=== PATIENT | female | born 1975 | race Caucasian/White ===

== ENCOUNTER 2019-11-04 21:46 | Observation (INO) | payer OTHER, SELFPAY ==
--- NOTE | ~2019-11-04 | XR_ITS ---
EXAMINATION: XR chest 2V DATE: 11/04/2019 22:10 INDICATION: Chest tightness TECHNIQUE: AP and lateral views of the chest are obtained. COMPARISON: None available FINDINGS: The lungs are free of acute opacities. There is no pleural effusion or pneumothorax. The ca rdiomediastinal silhouette is normal. There is mild thoracic spondylosis. Calcified pulmonary nodules and calcified left hilar lymph nodes are consistent with old granulomatous disease. Cholecystectomy clips are noted in the right upper quadrant. IMPRESSION: 1. No acute cardiopulmonary abnormality. Reviewed, dictated and finalized at location A. SAW OPERATOR CAKE CUTTING
--- NOTE | ~2019-11-04 | CT_ITS ---
EXAMINATION: CT abdomen pelvis w con INDICATION: Epigastric abdominal pain TECHNIQUE: Computed tomographic images of the abdomen and pelvis were obtained after the administrati on of 100 cc of Omnipaque 350 intravenous contrast. The dose-length product (DLP) was 571.92 mGy-cm. Automated exposure control and iterative reconstruction technique were employed. COMPARISON: None available FINDINGS: Minimal dependent atelectasis is present in the lung bases. The heart size is normal. There are calcified granulomas of the left lower lobe. There is focal fatty infiltration of the liver bjorn cent to the ligamentum teres. The gallbladder is surgically absent. Punctate calcifications in an oth erwise normal spleen likely represent healed granulomatous disease. The pancreas and adrenal glands a re normal. The kidneys are unremarkable. No pathologically enlarged abdominal or pelvic lymph nodes a re identified. There is no free intraperitoneal gas or evidence of bowel obstruction. The appendix is not dilated. There is a 14 mm area of circumscribed fat attenuation adjacent to the appendix. IMPRESSION: 1. Area of circumscribed fat attenuation adjacent to the normal size appendix, possibly an epiploic a ppendage. These findings were discussed with Dr. Heath Benson DO in the Emergency Department at 0022 hours on 11/05/2019 by the [facility] Radiologist. Reviewed, dictated and finalized at location A. A PROMOTER IMPRESSION: 1. Area of circumscribed fat attenuation adjacent to the normal size appendix, possibly an epiploic appendage. These findings were discussed with Dr. Heath Benson DO in the Emergency Department at 0022 hours on 11/05/2019 by the [facility] Radiologist.
--- NOTE | 2019-11-04 21:48 | ECG_ITS ---
Measurements Intervals [place] Rate: 67 P: 51 IN: 160 QRS: 61 QRSD: 99 T: 34 QT: 396 QTc: 418 Interpretive Statements SINUS RHYTHM NORMAL ECG Electronically Signed On 11-05-2019 6:50:41 PLATFORM MAN by Alistair Adamson D.O.
[2019-11-04 21:52] VITALS: BP 161/96; PULSE 78; RESP 20; TEMP 36.9; O2SAT 100; O2SAT 99
--- NOTE | 2019-11-04 21:52 | ED.CHESTPAIN ---
HPI - Chest Pain General Chief Complaint: Chest Pain Stated Complaint: Chest tightness Time Seen by Provider: 11/04/19 21:51 Source: patient and RN notes reviewed Mode of arrival: ambulatory Limitations: no limitations History of Present Illness HPI narrative: Pt is a 44 y/o female who presents to the ED with c/o substernal chest pain starting this evening. She notes that she suddenly developed a squeezing pain in her lower chest roughly 40 minutes ago. Pt states that her pain radiated into her upper back. She reports nausea and SOB accompanying her pain. Pt states that her symptoms soon resolved after several minutes. She also reports intermittent numbness in her lt arm over the past several weeks. Pt states that she has a FHx of [place]. MD complaint: chest pain Onset (ago): minute(s) (40) Timing of current episode: now resolved Pain location: substernal Pain radiation: none Quality: other (squeezing) Associated symptoms: nausea, dyspnea and other (numbness in lt arm) Related Data Home Medications Medication Instructions Recorded Confirmed metformin 1,000 mg PO DAILY 11/04/19 rosuvastatin 40 mg PO 2XW 11/04/19 semaglutide [Ozempic] mg SUBCUT WEEKLY 11/04/19 Allergies Allergy/AdvReac Type Severity Reaction Status Date / Time Penicillins Allergy Severe Anaphylactic Verified 11/04/19 21:59 Shock Review of Systems Review of Systems: All systems reviewed & are unremarkable except as noted in HPI and below Cardiovascular: Cardiovascular: Reports chest pain (substernal) Respiratory: Respiratory: Reports dyspnea Gastrointestinal: Gastrointestinal: Reports nausea Neurologic: Reports numbness (lt arm) [facility] Past Medical History Medical History Foot fracture, right Surgical History Surgical History No significant past surgical history Family History Family History (Updated 11/04/19 @ 22:00 by Jack Villasenor) Father , from [place] in his 30's Acute myocardial infarction Social History Social History Smoking status: Never smoker Exam Narrative: Exam Narrative: APPEARANCE: No acute distress, nontoxic, resting in bed EYES: EOMI HEENT: Normocephalic, atraumatic, OMM RESPIRATORY: No respiratory distress Clear to auscultation bilaterally with no rhonchi wheezing or rales. CARDIOVASCULAR: Regular rate and rhythm without murmurs rubs or gallops. ABDOMINAL: Soft, nontender, nondistended, no rebound or guarding MUSCULOSKELETAl: Moves all extremities. No clubbing, cyanosis or edema. NEURO: Awake and alert. Following commands, speech normal, no focal deficits SKIN:: Warm, dry. No rashes lesions or abrasions PSYCHIATRIC: Normal affect/mood, Course Course Emergency Course: Discussed with Dr. Lemus presentation work-up. Agrees with admission at this time Discussed with patient and family results of workup and diagnosis. Discussed need for admission. Patient and family understand and agree to current treatment plan Consultations Consultation #1: Discussed case with quill winder, Dr. Weiner. He will consult. Admit to the hospitalist. Date: 11/05/19 Time: 00:26 Vital Signs Vital signs: Vital Signs Temperature 98.5 F 11/04/19 21:52 Pulse Rate 78 11/04/19 21:52 Respiratory Rate 20 11/04/19 21:52 Blood Pressure 161/96 H 11/04/19 21:52 Pulse Oximetry 99 11/04/19 21:52 Temperature 98.5 F 11/04/19 21:52 Pulse Rate 61 11/05/19 00:14 Respiratory Rate 18 11/05/19 00:14 Blood Pressure 148/67 H 11/05/19 00:14 Pulse Oximetry 99 11/05/19 00:14 MDM - Chest Pain Lab Data Result diagrams: 11/04/19 22:26 11/04/19 22:26 Labs: Lab Results 11/04/19 11/04/19 11/04/19 Range/Units 22:26 22:26 22:26 WBC 9.0 (4.5-10.0) K/mm3 RBC 4.54 (4.2-5.4) M/mm3 Hgb 12.2 (12.0-15.0) g/dL Hct
[2019-11-04 22:22] VITALS: BP 145/77; PULSE 70; RESP 19; O2SAT 99
[2019-11-04 22:32] LABS: Basophils Absolute Auto 0.1 K/mm3 (0.0-0.1); Basophils Percent Auto 0.9 % (0.2-1.2); Eosinophils Absolute Auto 0.1 K/mm3 (0-0.3); Eosinophils Percent Auto 1.3 % (0-4.4); Hematocrit 38.3 % (37.0-47.0); Hemoglobin 12.2 g/dL (12.0-15.0); Immature Granulocyte Absolute 0.02 K/mm3 (0.00-0.031); Immature Granulocyte Percent A 0.2 % (0-0.5); Lymphocytes Absolute Auto 2.98 K/mm3 (0.9-3.2); Lymphocytes Percent Auto 33.1 % (18.3-44.2); Mean Corpuscular HGB Conc 31.9 g/dl (32-36); Mean Corpuscular Hemoglobin 26.9 pg (26-34); Mean Corpuscular Volume 84.4 fl (80-100); Monocytes Absolute Auto 0.7 K/mm3 (0.1-0.6); Monocytes Percent Auto 7.5 % (2.6-8.5); Neutrophils Absolute Auto 5.1 K/mm3 (1.3-6.7); Platelet Count Result 268 k/mm3 (150-375); Red Blood Count 4.54 M/mm3 (4.2-5.4); Red Cell Distribution Width 12.9 % (11.5-14.5)
[2019-11-04] MEDS: ASPIRIN 81 MG CHEWABLE TABLET 324 MG PO (22:38)
[2019-11-04 22:41] LABS: INR 1.1; Prothrombin Time 13.5 Seconds (11.1-14.7)
[2019-11-04 22:42] LABS: Partial Thromboplastin Time 27.4 SECONDS (22.3-36.8)
[2019-11-04 22:44] LABS: Alanine Aminotransferase 24 U/L (4-35); Albumin Level 3.9 g/dL (3.5-5.1); Alkaline Phosphatase 56 U/L (38-126); Aspartate Amino Transferase 38 U/L (14-36); Bilirubin,Total 0.4 mg/dL (0.2-1.3); Lipase 857 U/L (23-300)
[2019-11-04 22:45] LABS: Blood Urea Nitrogen 17 mg/dL (7-17); Carbon Dioxide 27 mmol/L (22-30); Chloride 100 mmol/L (98-107); Estimated CRCL calculation 107 ml/min; Estimated Glomerular Filt Rate > 60; Glucose 86 mg/dL (65-105); Potassium 3.7 mmol/L (3.4-5.0); Sodium 138 mmol/L (137-145)
[2019-11-04 22:56] LABS: Troponin I < 0.012 ng/mL (0.000-0.034)
[2019-11-04 23:07] VITALS: BP 140/78; PULSE 63; RESP 19; O2SAT 98
[2019-11-05] VITALS (18 sets, daily range): BP systolic 126–148; BP diastolic 65–74; PULSE 59–80; RESP 16–20; TEMP 36.4–36.7; O2SAT 94–99; BMI 28.8
[2019-11-05 01:21] LABS: Troponin I < 0.012 ng/mL (0.000-0.034)
--- NOTE | 2019-11-05 02:05 | ADMGEN ---
This patient, Paty Goldsmith, was admitted to IMU Room 205-01. Patient/family oriented to hospital policies and general routines including ID bracelet, bed and alarms, visiting hours, pain management, procedures, bathroom and other care routines, personal items, smoking policy, room service/diet, and visiting hours. Valuables list has been completed. Information on how to activate the Rapid Response Team has been discussed. Patient/Family are encouraged to report perceived risks to care and to ask questions if they do not understand what they are told or what they should do.
[2019-11-05 05:21] LABS: Troponin I < 0.012 ng/mL (0.000-0.034)
--- NOTE | 2019-11-05 09:38 | PM.CNCAR ---
Assessment and Plan Assessment and plan (1) Chest pain: Code(s): R07.9 - Chest pain, unspecified Status: Acute Assessment and Plan: Her pain is epigastric and radiates to the back which is very typical for her presentation with acute pancreatitis (Lipase 860) Troponin has been negative X 3 with no EKG changes. She would need further work up for acute pancreatitis. Had CT abd that is pending. Further work up per primary team Would hold off any further cardiac work up at this point. BP elevated on admission, better now. Would hold off starting any antihypertensives and follow BP control. May consider outpatient stress testing once pancreatitis resolves for risk stratification given her multiple cardiovascular risk factors (2) Acute pancreatitis: Code(s): K85.90 - Acute pancreatitis without necrosis or infection, unspecified Status: Acute Assessment and Plan: Management per primary team (3) Diabetes 1.5, managed as type 2: Code(s): E13.9 - Other specified diabetes mellitus without complications Status: Acute History of Present Illness History of Present Illness Consult date/time: 11/05/19 09:38 44 y/o female with h/o DM, HLD, s/p cholecystectomy who presented with chest pain. Patient reports episode of severe pain located in the epigastric area that radiated to her back and resolved within 2 minutes, Was associated with bilateral arm numbness. She feels back to normal now. Denies dyspnea, diaphoresis. No nausea or vomiting. In ER, EKG showed sinus rhythm at heart rate 67 with no ischemic changes. Troponin has been negative X3. Lipase is elevated at 860. AST is mildly elevated 38. She denies heavy alcohol abuse, though had glass of wine over the weekend. Her gallblader was removed 10 years ago. BP on admission was 160/95 but better now. No prior history or HTN. No prior known cardiac history. Denies tobacco abuse. Reason For Visit: Chest pain Review of Systems Review of Systems: All systems reviewed & are unremarkable except as noted in HPI and below Constitutional: Constitutional: Denies fatigue and Denies headache(s) Eyes: Eyes: Denies blurry vision ENT: Reports Normal hearing present and Denies headache(s) Cardiovascular: Cardiovascular: Denies chest pain, Denies diaphoresis, Denies pedal edema, Denies leg edema, Denies lightheadedness, Denies palpitations and Denies dyspnea Respiratory: Respiratory: Denies cough and Denies dyspnea Gastrointestinal: Gastrointestinal: Denies abdominal pain Musculoskeletal: Musculoskeletal: Denies back pain Neurologic: Reports Normal hearing present and Denies headache(s) Psychiatric: Psychiatric: Denies anxiety Endocrine: Endocrine: Denies fatigue and Denies palpitations PMF Past Medical History Medical History Foot fracture, right Surgical History Surgical History No significant past surgical history Family History Family History (Updated 11/04/19 @ 22:00 by Jack Villasenor) Father , from [place] in his 30's Acute myocardial infarction Social History Social History Smoking status: Never smoker Alcohol intake: never Substance use: never Gender identity (if verbalized by the patient): Female Spiritual care concerns: No Agree to blood products: Yes Meds Home Medications and Allergies Home Medications Medication Instructions Recorded Confirmed Type metformin 1,000 mg PO DAILY 11/04/19 11/05/19 History rosuvastatin 40 mg PO 2XW 11/04/19 11/05/19 History semaglutide [Ozempic] 1 mg SUBCUT WEEKLY 11/04/19 11/05/19 History Allergies Allergy/AdvReac Type Severity Reaction Status Date / Time Penicillins Allergy Severe Anaphylactic Verified 11/04/19 21:59 Shock Vital Signs Vital Signs - 24 hr 11/04/19 21:52
[2019-11-05] MEDS: SODIUM CHLORIDE 0.9% IV 1,000 ML 100 ML IV CONT (14:20)
--- NOTE | 2019-11-05 16:37 | HP_ITS ---
DATE OF SERVICE: REASON FOR ADMISSION: Patient admitted with chest pain. HISTORY OF PRESENT ILLNESS: This is a 44-year-old female admitted with substernal chest pain at the center of her sternum, radiating to her back. The patient states she was also having shortness of breath and sweat at the time. The patient had a pizza 3 hours before that. The patient states she had a cholecystectomy 7 years ago, and the patient states she is a diabetic. The patient sees Endocrinology in [place] and is on Ozempic, which is a weekly injection for diabetes. Patient is also on metformin. The patient states she started this new injection 6 months ago. The patient is otherwise usually well, does not come to hospital. The patient was seen by Cardiology. Chest pain, cardiac related, was ruled out. Troponins were negative and no EKG changes were seen. The patient was also found to have a lipase of 860. AST was also elevated at 38. The patient had a CT abdomen and pelvis, which showed normal appendix and no other acute changes. REVIEW OF SYSTEMS: Positive for substernal chest pain, severe in nature, radiating to the back. The patient is also positive for shortness of breath and sweats. The patient reports some nausea and some left arm numbness on admission, which is resolved. PAST MEDICAL HISTORY: The patient has a history of diabetes type 2. PAST SURGICAL HISTORY: Patient has history of right foot fracture and cholecystectomy. FAMILY HISTORY: Positive for myocardial infarction. SOCIAL HISTORY: Patient denies smoking. Drinks occasionally. MEDICATIONS ON ADMISSION: The patient is on metformin 1000 mg p.o. daily, Ozempic 1 mg subcutaneously weekly, 40 mg p.o. Tuesday and . PHYSICAL EXAMINATION: VITAL SIGNS: On admission, temperature 36.4, pulse 64, respirations 16, blood pressure 138/72. GENERAL: The patient is a young female, pleasant in nature. Not in any acute distress. EYES: PERRLA. HENT: Normocephalic. RESPIRATIONS: Clear to auscultation. No wheezes heard. CARDIOVASCULAR: Normal rate and rhythm. ABDOMEN: Soft, nontender. MUSCULOSKELETAL: Able to move all 4 limbs. NEURO: Alert and awake, following commands. No focal deficits. SKIN: Warm and dry. PSYCHIATRIC: Good mood and affect. EXTREMITIES: No edema. NECK: No JVD. LABORATORY DATA: Hemoglobin and hematocrit 12.2 and 38.3, white cell 9, platelets 268. INR 1.1. Sodium 138, potassium 3.7, BUN 17, creatinine 0.6, AST 38. Troponins x3 were negative. Lipase was found to be 857. IMAGING: The patient had a chest x-ray, which was normal. The patient had a CT abdomen and pelvis, which showed a normal-sized appendix. No acute findings. The patient had an EKG, which was normal. ASSESSMENT: 1. Pancreatitis, acute. 2. Diabetes type 2. PLAN: Patient admitted to the medical floor. Patient seen by Cardiology. Chest pain cardiac in nature ruled out. Patient does appear to have pancreatitis, possibly related to her diabetic injections. Patient is started on fluids. Patient is started on a clear diet which has been advanced slowly. Patient will have a repeat lipase in the morning. Possible discharge tomorrow. Please note that patient may not be able to continue on her Ozempic on discharge. D I [place]: Jovan
[2019-11-05 16:54] LABS: Glucose Point of Care 86 (65-105)
[2019-11-05 20:51] LABS: Glucose Point of Care 107 (65-105)
[2019-11-06] VITALS (8 sets, daily range): BP systolic 122–133; BP diastolic 63–65; PULSE 59–80; RESP 18–97; TEMP 35.9–36.9; O2SAT 97–100
[2019-11-06] MEDS: SODIUM CHLORIDE 0.9% IV 1,000 ML 100 ML IV CONT (00:34)
[2019-11-06 05:00] LABS: Basophils Absolute Auto 0.1 K/mm3 (0.0-0.1); Basophils Percent Auto 0.8 % (0.2-1.2); Eosinophils Absolute Auto 0.2 K/mm3 (0-0.3); Eosinophils Percent Auto 1.9 % (0-4.4); Hematocrit 37.4 % (37.0-47.0); Hemoglobin 12.1 g/dL (12.0-15.0); Immature Granulocyte Absolute 0.01 K/mm3 (0.00-0.031); Immature Granulocyte Percent A 0.1 % (0-0.5); Lymphocytes Absolute Auto 2.63 K/mm3 (0.9-3.2); Lymphocytes Percent Auto 33.1 % (18.3-44.2); Mean Corpuscular HGB Conc 32.4 g/dl (32-36); Mean Corpuscular Hemoglobin 27.1 pg (26-34); Mean Corpuscular Volume 83.9 fl (80-100); Mean Platelet Volume 9.7 fl (7.4-10.4); Monocytes Absolute Auto 0.6 K/mm3 (0.1-0.6); Monocytes Percent Auto 7.3 % (2.6-8.5); Neutrophils Absolute Auto 4.5 K/mm3 (1.3-6.7); Neutrophils Percent Auto 56.8 % (45.5-73.1); Platelet Count Result 244 k/mm3 (150-375); Red Blood Count 4.46 M/mm3 (4.2-5.4); Red Cell Distribution Width 12.7 % (11.5-14.5)
[2019-11-06 05:19] LABS: Cholesterol 106 mg/dL (0-200); HDL Direct 36 mg/dL; Triglycerides 78 mg/dL (<150)
[2019-11-06 05:21] LABS: Lipase 110 U/L (23-300)
[2019-11-06 05:23] LABS: Blood Urea Nitrogen 11 mg/dL (7-17); Calcium 8.8 mg/dL (8.4-10.2); Carbon Dioxide 26 mmol/L (22-30); Chloride 106 mmol/L (98-107); Estimated CRCL calculation 106 ml/min; Estimated Glomerular Filt Rate > 60; Glucose 79 mg/dL (65-105); Potassium 4.1 mmol/L (3.4-5.0); Sodium 138 mmol/L (137-145)
[2019-11-06 05:30] LABS: LDL Cholesterol Direct 56 mg/dL
[2019-11-06 07:42] LABS: Glucose Point of Care 83 (65-105)
--- NOTE | 2019-11-06 09:39 | PM.DS ---
DS: Diagnosis Admitting Diagnosis Admitting Diagnosis: Chest pain, unspecified Discharge Diagnosis (1) Acute pancreatitis: Code(s): K85.90 - Acute pancreatitis without necrosis or infection, unspecified Status: Acute Assessment and Plan: Possible mild case of pancreatitis given lipase 800s yesterday; WNL today. No evidence on CT abdomen. Patient tolerating PO well today; no associated abdominal pain/n/v. Pain has subsided. Will have patient hold Ozempic until further recommendations from her Electrical Machinist Follow up with PCP as needed (2) Diabetes 1.5, managed as type 2: Code(s): E13.9 - Other specified diabetes mellitus without complications Status: Acute Assessment and Plan: BGL ranged from 70s-low 100s; well managed. Will have patient follow up with Electrical Machinist Hold Ozempic Continue home Metformin (3) Chest pain: Code(s): R07.9 - Chest pain, unspecified Status: Acute Assessment and Plan: Substernal CP vs epigastric pain from possible pancreatitis; pain radiating to back. Patient tells me this only lasted 2-3 minutes. Cardiology consulted and appreciate recommendations; okay for discharge from their standpoint. ACS ruled out with negative tropsx3 and normal ECG Follow up with Cardiology as needed DS: Summary Hospital Course Reason for hospitalization: CP/rule out ACS. Pancreatitis suggested by elevated lipase; possible medication induced Hospital Course: Patient is a 44 yo F with history of DM1.5 (treated as DMII) who presented to the ER on evening of 11/04 with complaints of substernal chest pain that radiated to upper back. She had associated SOB and sweats at that time as well. She had eaten pizza 3 hours prior to pain. She also reported recently starting Ozempic injections roughly 6 months ago for her DM. While in the ER, troponins were negative and ECG was grossly normal. CT of abd/pelvis noted area of circumscribed fat attenuation adjacent to the normal size appendix, possibly an epiploic appendage. Please see H&P for further details Presenting VS: BP 161/96, HR 78, RR 20, temp 98.5, sat 99% RA Presenting Pertinent labs: Troponins negative x 3, Lipase 857 (11/06 110), triglycerides 78, cholesterol 106, LDL 56, HDL 36. CBC, coags, CMP otherwise unremarkable Micro: none Imagin/24 CXR IMPRESSION: 1. No acute cardiopulmonary abnormality. 11/05 Abdomen/pelvis Ct IMPRESSION: 1. Area of circumscribed fat attenuation adjacent to the normal size appendix, possibly an epiploic appendage. These findings were discussed with Dr. Heath Benson DO in the Emergency Department at 0022 hours on 11/05/2019 by the [facility] Radiologist. ECG: Interpretive Statements SINUS RHYTHM NORMAL ECG Patient was admitted to the hospitalist service for further evaluation to rule out ACS and to treat possible case of pancreatitis as lipase into 800s; Cardiology was consulted for further input on symptoms, which recommended no further cardiac work up at this time as trops negative x 3, no ekg changes and symptoms had resolved. On day of admission, patient's Ozempic was held as this could be possible etiology for pancreatitis, thus, likely etiology of symptoms. Her diet was advanced slowly over the course of her stay. By day of discharge she did not complain of any pain; she noted that her substernal chest pain only had last 2-3 minutes on day of presentation. She was tolerating her diet okay. She was instructed to hold Ozempic until she discussed with her Electrical Machinist. Her lipase had normalized. Her BP had improved as well. Patient was hemodynamically stable and in improved condition for discharge on 11/06. Patient instructed to call her PCP's office to see if they would like to see her in for a follow up. Patient agreeable and comfortable with plan for discharge. Status at
== END 2019-11-06 12:24 | disposition home or self-care (01) ==
LOC: ANHED 22:09 → ANHIMU 11-05 01:21
PROVIDERS: Family Medicine; Physician Assistant; Admitting Provider Internal Medicine; Emergency Provider Emergency Medicine; PCP Nurse Practitioner Adult Health; Visit Provider Hospitalist
DX: K85.90 Acute pancreatitis without necrosis or infection, unspecified (principal); E13.9 Other specified diabetes mellitus without complications; R07.2 Precordial pain; Z79.84 Long term (current) use of oral hypoglycemic drugs; Z82.49 Family history of ischemic heart disease and other diseases of the circulatory system; Z90.49 Acquired absence of other specified parts of digestive tract
CPT/HCPCS: 36415; 71046; 74177; 80048; 80061; 80076; 81025; 83690; 84484; 85025; 85610; 85730; 93005; 96360; 96361; 99285; A9270; G0378; J7030; Q9967

== ENCOUNTER 2022-03-04 17:09 | Emergency (ER) | payer OTHER, SELFPAY ==
[2022-03-04 17:17] VITALS: BP 145/68; PULSE 78; RESP 16; TEMP 37.2; O2SAT 99
--- NOTE | 2022-03-04 17:17 | ED.URI ---
HPI - URI/Sore Throat General Chief Complaint: Upper Respiratory Infection Stated Complaint: uri Time Seen by Provider: 03/04/22 17:25 Source: patient and RN notes reviewed Mode of arrival: ambulatory Limitations: no limitations History of Present Illness HPI Narrative: 46-year-old female presented for complaint of sinus pressure and congestion, sore throat, cough occasionally productive of green sputum. Endorses fatigue. Symptoms started 4 days ago. Taking Aleve sinus for symptoms. Denies associated headache, body aches, shortness of breath, nausea vomiting, fevers or chills. Endorses sick contacts 4 days ago. She is not vaccinated for COVID or flu. Endorses COVID 2 to 3 months ago. MD elicited complaint: cough Related Data Home Medications Medication Instructions Recorded Confirmed metformin 500 mg tablet,extended 1,000 mg PO DAILY 11/04/19 11/05/19 release 24 hr rosuvastatin 40 mg tablet 40 mg PO 2XW 11/04/19 11/05/19 semaglutide 1 mg/dose (2 mg/1.5 1 mg subcut WEEKLY 11/04/19 11/05/19 mL) subcutaneous pen injector (Ozempic) escitalopram oxalate 20 mg tablet tablet 03/04/22 ubrogepant 100 mg tablet (Ubrelvy) tablet 03/04/22 Allergies Allergy/AdvReac Type Severity Reaction Status Date / Time Penicillins Allergy Severe Anaphylactic Verified 11/04/19 21:59 Shock Review of Systems Review of Systems: CONSTITUTIONAL: Denies chills, sweats, fever EYES: Denies visual changes, redness, or discharge ENT: Reports rhinorrhea, congestion, sinus pain, otalgia, sore throat CARDIOVASCULAR: Denies chest pain, palpitations, edema RESPIRATORY: Reports cough, post nasal drainage. Denies dyspnea GASTROINTESTINAL: Denies abdominal pain, nausea, vomiting, diarrhea SKIN: Denies rash or itching MUSCULOSKELETAL:denies myalgia PMFSH Past Medical History Medical History Acute pancreatitis Diabetes 1.5, managed as type 2 Foot fracture, right Surgical History Surgical History No significant past surgical history Family History Family History Father , from [place] in his 30's Acute myocardial infarction Social History Social History Smoking status: Never smoker Alcohol intake: never Substance use: never Gender identity (if verbalized by the patient): Female Spiritual care concerns: No Agree to blood products: Yes Exam Narrative: GENERAL: Ill-appearing, nontoxic EYES: PERRLA, conjunctivae clear ENT: Mucous membranes moist. TM pearly dhillon with normal light reflex bilaterally; no tragal tenderness. Oropharynx erythematous without lesions or exudate NECK: Supple. No lymphadenopathy CHEST: Clear to auscultation, breath sounds equal. HEART: Regular rate and rhythm. No murmur heard. SKIN: Warm, dry, no rash. NEURO: Alert and oriented x3. PSYCH: Normal mood and affect Course Course Emergency Course: Patient is aware of diagnosis, understands and agrees to treatment plan. Anticipatory guidance given. Patient agrees to follow-up as directed and is aware of reasons to seek care at the emergency department. Portions of this record may have been created with voice recognition software Level of Care: Express Care Visit Vital Signs Vital signs: Vital Signs Temperature 98.9 F 03/04/22 17:17 Pulse Rate 78 03/04/22 17:17 Respiratory Rate 16 03/04/22 17:17 Blood Pressure 145/68 H 03/04/22 17:17 Pulse Oximetry 99 03/04/22 17:17 Oxygen Delivery Room Air 03/04/22 17:17 Temperature 98.9 F 03/04/22 17:17 Pulse Rate 78 03/04/22 17:17 Respiratory Rate 16 03/04/22 17:17 Blood Pressure 145/68 H 03/04/22 17:17 Pulse Oximetry 99 03/04/22 17:17 Oxygen Delivery Room Air 03/04/22 17:17 reviewed MDM - URI/Sore Throat MDM [place]
[2022-03-04 17:55] VITALS: BP 145/68; PULSE 78; RESP 16; TEMP 37.2; O2SAT 99
== END 2022-03-04 17:50 | disposition home or self-care (01) ==
PROVIDERS: Emergency Provider Nurse Practitioner Family; PCP Nurse Practitioner Adult Health
DX: J06.9 Acute upper respiratory infection, unspecified (principal); E13.8 Other specified diabetes mellitus with unspecified complications; Z79.84 Long term (current) use of oral hypoglycemic drugs; Z28.310 Unvaccinated for COVID-19; Z86.16 Personal history of COVID-19
CPT/HCPCS: 87081; 87880; 99213; G0463

== ENCOUNTER → 2022-03-26 16:41 | Outpatient (CLI) | payer OTHER, SELFPAY ==
--- NOTE | ~2022-03-26 | XR_ITS ---
XR chest 2V 03/26/2022 17:03 Indication: Cough Procedure: 2 view chest Comparison: 11/04/2019 Findings: Heart size normal. No focal air space disease, pulmonary edema, pleural effusion or suspect ed pneumothorax. There are calcified granulomas bilaterally. No acute osseous abnormality. Impression: 1: No acute cardiopulmonary disease. Reviewed, dictated and finalized at location A. Impression: 1: No acute cardiopulmonary disease.
== END ==
PROVIDERS: PCP Nurse Practitioner Adult Health; Visit Provider Nurse Practitioner Adult Health
DX: R05.9 Cough, unspecified (principal)
CPT/HCPCS: 71046

== ENCOUNTER → 2023-08-29 09:41 | Outpatient (CLI) | payer OTHER, SELFPAY ==
--- NOTE | ~2023-08-29 | MR_ITS ---
MRI of the brain Clinical History: Tremor Technique: Axial and sagittal T1-weighted images were acquired. These were followed by axial T2-weigh trixie, diffusion weighted, gradient, and FLAIR images. Following intravenous administration of 70 cc Mu ltiHance gadolinium, T1-weighted fat-sat imaging was performed in the axial and coronal planes. Findings: There is no acute infarct, intracranial hemorrhage or mass lesion. There are moderate chron ic white matter changes in the periventricular white matter bilaterally. Ventricles and subarachnoid spaces are unremarkable. Orbits are unremarkable. Paranasal sinuses and m astoid air cells are clear. Major intracranial flow voids appear intact. Sagittal midline structures are intact. No abnormal postcontrast enhancement identified. IMPRESSION: Moderate chronic white matter disease. Correlate for chronic microvascular ischemic change versus any possibility of demyelinating disease. Reviewed, dictated and finalized at location M. IFIED LACTATION EDUCATOR IMPRESSION: Moderate chronic white matter disease. Correlate for chronic microvascular isch emic change versus any possibility of demyelinating disease.
== END ==
PROVIDERS: PCP Physician Assistant Medical; Visit Provider Physician Assistant Medical
DX: R25.1 Tremor, unspecified (principal); R90.82 White matter disease, unspecified
CPT/HCPCS: 70553; A9577

== ENCOUNTER 2023-10-21 16:59 | Observation (INO) | payer OTHER, SELFPAY ==
[2023-10-21 17:04] VITALS: BP 155/82; PULSE 129; RESP 20; TEMP 36.8; O2SAT 100
--- NOTE | 2023-10-21 17:10 | ECG_ITS ---
Measurements Intervals [place] Rate: 106 P: 42 AR: 128 QRS: 83 QRSD: 109 T: -3 QT: 351 QTc: 468 Interpretive Statements SINUS TACHYCARDIA NONSPECIFIC T-WAVE ABNORMALITY ABNORMAL ECG COMPARED TO ECG 11/04/2019 21:58:04 SINUS TACHYCARDIA NOW PRESENT T-WAVE ABNORMALITY NOW PRESENT Electronically Signed On 10-22-2023 8:03:15 JOURNEYMAN ELECTRICIAN PV INSTALLER by Vickey Fletcher M.D.
--- NOTE | 2023-10-21 17:12 | PC.NURSE ---
Received a call from [facility], stated that a pt was coming after ingesting a handful; of Wellbutrin 150MG pills. unsure of the amount. the ingestion was 2 hrs barge captain to ED. pt has cardiovascular changes and activation of seizures. they did request tox labs, ekg, if needed Activated Charcoal 50 mg without Sorbital
--- NOTE | 2023-10-21 17:16 | ECG_ITS ---
Measurements Intervals [place] Rate: 122 P: 55 HI: 143 QRS: 86 QRSD: 105 T: -2 QT: 352 QTc: 502 Interpretive Statements SINUS TACHYCARDIA NONSPECIFIC ST & T-WAVE ABNORMALITY ABNORMAL ECG COMPARED TO ECG 11/04/2019 21:58:04 SINUS TACHYCARDIA NOW PRESENT T-WAVE ABNORMALITY NOW PRESENT Electronically Signed On 10-22-2023 13:21:29 GARBAGE TRUCK DRIVER by Vickey Fletcher M.D.
[2023-10-21 17:24] LABS: Basophils Absolute Auto 0.1 K/mm3 (0.0-0.1); Basophils Percent Auto 0.9 % (0.2-1.2); Eosinophils Absolute Auto 0.1 K/mm3 (0-0.3); Eosinophils Percent Auto 0.9 % (0-4.4); Hemoglobin 14.5 g/dL (12.0-15.0); Immature Granulocyte Absolute 0.04 K/mm3 (0.00-0.031); Immature Granulocyte Percent A 0.3 % (0-0.5); Lymphocytes Percent Auto 24.7 % (18.3-44.2); Mean Corpuscular HGB Conc 32.2 g/dl (32-36); Mean Corpuscular Hemoglobin 27.5 pg (26-34); Mean Corpuscular Volume 85.4 fl (80-100); Mean Platelet Volume 9.7 fl (7.4-10.4); Monocytes Absolute Auto 0.8 K/mm3 (0.1-0.6); Monocytes Percent Auto 6.6 % (2.6-8.5); Neutrophils Absolute Auto 7.8 K/mm3 (1.3-6.7); Neutrophils Percent Auto 66.6 % (45.5-73.1); Platelet Count Result 310 k/mm3 (150-375); Red Blood Count 5.27 M/mm3 (4.2-5.4); Red Cell Distribution Width 12.7 % (11.5-14.5); White Blood Count 11.8 K/mm3 (4.5-10.0)
[2023-10-21 17:35] LABS: Acetaminophen < 10 ug/mL (10-30); Alanine Aminotransferase 23 U/L (6-35); Albumin Level 4.6 g/dL (3.5-5.1); Alkaline Phosphatase 71 U/L (38-126); Anion Gap 9 mmol/L (8-16); Aspartate Amino Transferase 30 U/L (14-36); Bilirubin,Total 0.7 mg/dL (0.2-1.3); Blood Urea Nitrogen 17 mg/dL (7-17); Calcium 9.4 mg/dL (8.4-10.2); Carbon Dioxide 22 mmol/L (22-30); Chloride 105 mmol/L (98-107); Estimated CRCL calculation 93 ml/min; Estimated Glomerular Filt Rate > 60; Ethanol < 10 mg/dL (<10); Glucose 132 mg/dL (65-110); Potassium 3.8 mmol/L (3.4-5.0); Salicylate < 1.0 mg/dL (2-20); Sodium 136 mmol/L (137-145)
[2023-10-21 18:00] LABS: SARS-CoV-2 RNA PCR Negative (Negative)
[2023-10-21 18:01] LABS: Appearance Urine Clear (Clear); Bilirubin Urine Negative (Negative); Blood Urine Negative (Negative); Color Urine Yellow (Yellow); Glucose Urine UA 3+ mg/dL (Negative); Ketones Urine Trace mg/dL (Negative); Leukocyte Esterase Ur Negative LEU/UL (Negative); Nitrate Urine Negative (Negative); Protein Urine Negative (Negative); Specific Grav Ur 1.024 (1.001-1.035); Urobilinogen Urine 0.2 mg/dL (<2.0)
[2023-10-21 18:12] LABS: Add Urine Microscopic? NO
[2023-10-21 18:15] LABS: Amphetamine Screen Urine Negative (Negative); Barbiturate Screen Urine Negative (Negative); Benzodiazepines Screen Urine Negative (Negative); Cannabinoid Screen Urine Negative (Negative); Cocaine Screen Urine Negative (Negative); Methadone Screen Urine Negative (Negative); Opiate Screen Urine Negative (Negative); Phencyclidine Screen Urine Negative (Negative)
--- NOTE | 2023-10-21 18:27 | ED.OVERDOSE ---
HPI - Overdose General Chief Complaint: Overdose Stated Complaint: took welbutrin Time Seen by Provider: 10/21/23 18:06 Source: patient and family Limitations: no limitations History of Present Illness HPI Narrative: patient is a 48-year-old female presents to the emergency department for an overdose. Patient states today at approximately 3:00 p.m. she took a handful of Wellbutrin that she had from the past. Patient states the past she was on Wellbutrin XL 150 mg and stop taking this because it was giving her tremors and she was switched to Abilify 150 mg and she stop taking that due to side effects and has not been on any medications recently. Patient states she had a bad day at work was feeling depressed and was hoping that by taking a handful of the Wellbutrin she had at this would increase the levels in her system rapidly and make her feel better. Patient states she took approximately 20 total pills. Patient denies doing this to try to harm herself. Patient admits to feeling depressed. Patient denies alcohol or illicit drug use. Patient denies chest pain, difficulty breathing, abdominal pain, nausea, vomiting, diarrhea, numbness, weakness, confusion, it is vision changes, rash, headache, recent injuries, recent illness, Palpitations, fever. Related Data Home Medications Medication Instructions Recorded Confirmed escitalopram oxalate 20 mg tablet tablet 03/04/22 08/17/23 ubrogepant 100 mg tablet (Ubrelvy) tablet 03/04/22 08/17/23 Allergies Allergy/AdvReac Type Severity Reaction Status Date / Time Penicillins Allergy Severe Anaphylactic Verified 08/19/23 10:32 Shock Review of Systems Review of Systems: A 10 system review of systems was completed on the patient and is negative except for what is stated in the HPI. Nursing and ancillary documentation was reviewed. [facility] Past Medical History Medical History Acute pancreatitis Anxiety Diabetes 1.5, managed as type 2 Foot fracture, right Surgical History Surgical History Hx of cholecystectomy No significant past surgical history Family History Family History Father , from [place] in his 30's Acute myocardial infarction Mother Thyroid disorder Grandparent Cerebrovascular accident Alcoholism Social History Social History Smoking status: Never smoker Alcohol intake: never Substance use: never Substance use type: does not use Gender identity (if verbalized by the patient): Female Spiritual care concerns: No Agree to blood products: Yes Comments At time of signature, I have reviewed and agree with nursing past medical, surgical, social and family history unless otherwise noted. Please see the nursing chart for further information. There is no relevant family history pertinent to the presenting complaint. Exam Narrative: CONST: No acute distress. Well nourished. HENMT: Head is normocephalic and atraumatic. Moist mucous membranes. No posterior oropharynx erythema. EYES: No conjunctival icterus, injection, or pallor. PERRL. pupils are approximately 2 mm bilaterally. NECK: No meningeal signs. RESP: Able to speak in full sentences. Normal respiratory effort. CTAB. CARDIO: Tachycardic rate. Regular rhythm. 2+ DP and radial pulses bilaterally. GI: Nondistended. No tenderness to palpation. Soft. : No CVA tenderness to palpation. SKIN: No rashes or lesions noted on exposed skin. Skin is warm and dry. NEURO: Oriented x3. Moves all extremities. No focal neurological deficits. No tremors. No clonus. EXTREM/MSK/BACK: No pedal edema. Course Vital Signs Vital signs: Vital Signs Temperature 98.2 F 10/21/23 17:04 Pulse Rate 129 H 10/21/23 17:04 Respiratory Rate 20 10/21/23 17:04
[2023-10-21 18:28] LABS: Beta HCG Quantitative < 2.39 mIU/ML
[2023-10-21] MEDS: POTASSIUM CHLORIDE 20 MEQ PACKET (FOR LIQUID) PO (19:16)
--- NOTE | 2023-10-21 19:47 | PM.IMHP ---
H&P: HPI History of Present Illness Date/Time: 10/21/23 19:47 Chief Complaint: OD Narrative: This is a 48-year-old female with past medical history significant for type diabetes mellitus, generalized anxiety disorder, depression . Patient presents to the emergency room after ingesting 15 tabs of Wellbutrin accidentally, patient denies any suicidal ideation any intent of harming herself or hurting herself I have had lengthy discussion and conversation with patient and who is at bedside patient being mentally denies having any thoughts of hurting herself supports her who is at bedside. Poison Control was called and patient has been placed in observation for possible seizure Review of Systems Review of Systems: ingested 15 tabs of Wellbutrin Constitutional: Constitutional: Denies chills, Denies fatigue, Denies fever(s), Denies malaise and Denies night sweats Eyes: Eyes: Denies change in vision ENT: Denies dysphagia and Denies odynophagia Cardiovascular: Cardiovascular: Denies chest pain, Denies radiating jaw, neck or arm pain and Denies palpitations Respiratory: Respiratory: Denies cough, Denies excessive phlegm production and Denies dyspnea Gastrointestinal: Gastrointestinal: Denies abdominal pain, Denies dyspepsia, Denies heartburn, Denies diarrhea, Denies nausea and Denies vomiting Genitourinary: Genitourinary: Denies dysuria Musculoskeletal: Musculoskeletal: Denies back pain and Denies arthralgias Integumentary/Breasts: Skin/Breast: Denies rash Neurologic: Denies focal weakness and Denies Sensory deficit (Neuro) Psychiatric: Psychiatric: Reports no additional psychiatric complaints and Reports as per HPI Endocrine: Endocrine: Denies cold intolerance, Denies flushing, Denies heat intolerance, Denies polyphagia, Denies polydipsia and Denies palpitations Hematologic/Lymphatic: Hematologic/Lymphatic: Reports no additional hematologic/lymphatic complaints and Reports as per HPI Allergic/Immunologic: Allergic/Immunologic: Reports no additional allergic/immunologic complaints and Reports as per HPI PMFSH Past Medical History Medical History (Updated 10/22/23 @ 02:55 by Marvin Jameson MD) Acute pancreatitis Anxiety Diabetes 1.5, managed as type 2 Foot fracture, right Surgical History Surgical History Hx of cholecystectomy No significant past surgical history Family History Family History Father , from [place] in his 30's Acute myocardial infarction Mother Thyroid disorder Grandparent Cerebrovascular accident Alcoholism Social History Social History Smoking status: Never smoker Alcohol intake: never Substance use: never Substance use type: does not use Do You Feel Safe in your Home?: Yes Lack of Transportation: No Lack of Food: Never True Current Housing: I Have Housing Concerned About Future Housing: No Difficulty Paying Gas/Electric Bills: No Difficulty Paying for Meds: No Currently Unemployed: No Education: Associate Degree Difficulty w/ Childcare or Family Care: No Gender identity (if verbalized by the patient): Female Spiritual care concerns: No Agree to blood products: Yes Meds Home Medications and Allergies Home Medications Medication Instructions Recorded Confirmed Type escitalopram oxalate 20 mg tablet 20 mg PO DAILY 03/04/22 10/21/23 History ubrogepant 100 mg tablet (Ubrelvy) 100 mg PO DAILY 03/04/22 10/21/23 History rosuvastatin 40 mg tablet 40 mg PO 2XW #30 tabs 08/18/23 10/21/23 Rx dapagliflozin propanediol 5 mg 5 mg PO DAILY #30 tabs 09/30/23 10/21/23 Rx tablet (Farxiga) bupropion HCl 150 mg 24 hr tablet, 150 mg PO DAILY 10/21/23 10/21/23 History extended release (Wellbutrin XL) Allergies Allergy/AdvReac Type Severity Reaction Sta
[2023-10-21 19:57] VITALS: BP 154/74; PULSE 110; RESP 15; O2SAT 100
[2023-10-21] MEDS: SODIUM CHLORIDE 0.9% IV 1,000 ML 999 ML IV CONT (20:13)
[2023-10-21 21:25] VITALS: BP 158/102; PULSE 124; RESP 15; O2SAT 100
[2023-10-21 23:16] VITALS: BMI 31.1
[2023-10-21 23:18] VITALS: BP 162/65; PULSE 113; RESP 18; TEMP 36.5; O2SAT 99
[2023-10-21 23:22] VITALS: PULSE 109
[2023-10-22] VITALS: PULSE 109
--- NOTE | 2023-10-22 00:05 | PC.NURSE ---
Pt is A&O x4, able to make needs known, answers all questions appropriately. Pt denies pain at this time. Pt was instructed to call RN if the pain reaches 5. Pt was educated on pain management, medications, hospital environment, use of call light, admission packet reviewed and all questions answered. Medication reconciliation completed bedside with the pt. Pt's present and bedside. All questions answered, will continue to monitor.
[2023-10-22 00:16] VITALS: PULSE 102; RESP 20; O2SAT 98
[2023-10-22 04:00] VITALS: PULSE 100
[2023-10-22 04:24] VITALS: BP 148/69; PULSE 104; RESP 20; TEMP 37.1; O2SAT 100
[2023-10-22] MEDS: SODIUM CHLORIDE 0.9% IV 1,000 ML 125 ML IV CONT (05:23)
--- NOTE | 2023-10-22 06:38 | ECG_ITS ---
Measurements Intervals [place] Rate: 107 P: ME: 0 QRS: 79 QRSD: 101 T: 8 QT: 360 QTc: 481 Interpretive Statements SINUS TACHYCARDIA NONSPECIFIC T-WAVE ABNORMALITY ABNORMAL ECG COMPARED TO ECG 10/21/2023 19:12:11 ATRIAL FLUTTER NOW PRESENT Electronically Signed On 10-22-2023 8:04:39 PIERCING ARTIST by Vickey Fletcher M.D.
[2023-10-22 08:32] VITALS: PULSE 89
[2023-10-22] MEDS: ACETAMINOPHEN 325 MG TABLET 650 MG PO (08:32)
[2023-10-22 09:25] LABS: Hemoglobin 12.6 g/dL (12.0-15.0); Mean Corpuscular HGB Conc 32.3 g/dl (32-36); Mean Corpuscular Hemoglobin 27.7 pg (26-34); Mean Corpuscular Volume 85.7 fl (80-100); Mean Platelet Volume 9.7 fl (7.4-10.4); Platelet Count Result 262 k/mm3 (150-375); Red Blood Count 4.55 M/mm3 (4.2-5.4); Red Cell Distribution Width 12.9 % (11.5-14.5); White Blood Count 8.2 K/mm3 (4.5-10.0)
[2023-10-22 09:35] LABS: Alanine Aminotransferase 19 U/L (6-35); Albumin Level 3.7 g/dL (3.5-5.1); Alkaline Phosphatase 58 U/L (38-126); Anion Gap 7 mmol/L (8-16); Aspartate Amino Transferase 25 U/L (14-36); Bilirubin,Total 0.9 mg/dL (0.2-1.3); Blood Urea Nitrogen 13 mg/dL (7-17); Calcium 8.8 mg/dL (8.4-10.2); Carbon Dioxide 22 mmol/L (22-30); Chloride 107 mmol/L (98-107); Estimated CRCL calculation 92 ml/min; Estimated Glomerular Filt Rate > 60; Glucose 172 mg/dL (65-110); Magnesium 2.1 mg/dL (1.6-2.3); Potassium 4.1 mmol/L (3.4-5.0); Sodium 136 mmol/L (137-145)
[2023-10-22 12:00] VITALS: PULSE 98
--- NOTE | 2023-10-22 12:38 | ECG_ITS ---
Measurements Intervals [place] Rate: 90 P: 58 CT: 145 QRS: 72 QRSD: 106 T: 18 QT: 367 QTc: 449 Interpretive Statements SINUS RHYTHM NONSPECIFIC T-WAVE ABNORMALITY ABNORMAL ECG COMPARED TO ECG 10/22/2023 06:52:09 NO SIGNIFICANT CHANGES Electronically Signed On 10-22-2023 13:23:14 AUDIO/VISUAL OPERATOR by Vickey Fletcher M.D.
--- NOTE | 2023-10-22 14:04 | PM.DS ---
DS: Admitting Diagnosis Discharge Date 10/22/2023 Admitting Diagnosis Accidental Overdose DS: Discharge Diagnosis Discharge Diagnosis Plan Accidental OVerdose -hold Wellbutrin and Abilify x2 days -F/U with PCP with in 1 week -Schedule O/P psychiatric therapy for anxiety and depression -Encourage oral hydration DS: Summary Hospital Course Reason for hospitalization: accidental overdose Hospital Course: Chief Complaint: OD Narrative: ?This is a 48-year-old female with past medical history significant for type diabetes mellitus, generalized anxiety disorder, depression .? Patient presents to the emergency room after ingesting 15 tabs of Wellbutrin accidentally, patient denies any suicidal ideation any intent of harming herself or hurting herself I have had lengthy discussion and conversation with patient and who is at bedside patient being mentally denies having any thoughts of hurting herself supports her who is at bedside.? Poison Control was called and patient has been placed in observation for possible seizure Patient labs WNL and vitals stable mild tachycardia. Patient alert and oriented eating and drinking well. F/U EKG SR QTC QRS 76 Information called to poison control who closed case. Patient was then seen by crisis who agreed patient was not suicidal or needed inpatient psychiatric. patient was discharged home with plan is to follow-up with primary care physician as well as schedule outpatient psychiatric therapy. Status at Discharge Functional status at discharge: independent ambulation Overall status at discharge: patient is back to baseline Time Spent with Patient Time attestation: Total time spent providing and/or coordinating discharge services: Exam Narrative: Physical Exam: -GENERAL: Alert and oriented x 3. No acute distress. Well-nourished. -EYES: EOMI. No scleral icterus. PERRLA. -HEENT: Moist mucous membranes. No cervical lymphadenopathy. -LUNGS: Clear to auscultation bilaterally. No accessory muscle use. -CARDIOVASCULAR: Regular rate and rhythm. No murmur. No JVD. S1-S2 -ABDOMEN: Soft, non-tender and non-distended. No palpable masses. -EXTREMITIES: No edema. Non-tender -SKIN: No rashes or lesions. Skin warm, dry. -NEUROLOGIC: No focal neurological deficits. CN II-XII grossly intact -PSYCHIATRIC: Appropriate mood and affect. Good judgement and insight. No visual or auditory hallucinations. No suicidal or homicidal ideation. DS: Data Data Completed and Pending Labs on day of discharge: Labs from last 24 hours 10/22/23 10/21/23 10/21/23 09:07 17:50 17:18 WBC 8.2 11.8 H RBC 4.55 5.27 Hgb 12.6 14.5 Hct 39.0 45.0 MCV 85.7 85.4 MCH 27.7 27.5 MCHC 32.3 32.2 RDW 12.9 12.7 Plt Count 262 310 MPV 9.7 9.7 Immature Gran % (Auto) 0.3 Neut % (Auto) 66.6 Lymph % (Auto) 24.7 [place] % (Auto) 6.6 Eos % (Auto) 0.9 Baso % (Auto) 0.9 Lymph # (Auto) 2.90 [place] # (Auto) 0.8 H Eos # (Auto) 0.1 Baso # (Auto) 0.1 Abs Immat Gran (auto) 0.04 H Absolute Neuts (auto) 7.8 H Absolute Nucleated RBC 0.0 Nucleated RBC % 0.0 Sodium 136 L 136 L Potassium 4.1 3.8 Chloride 107 105 Carbon Dioxide 22 22 Anion Gap 7 L 9 BUN 13 17 Creatinine 0.70 0.70 Estim Creat Clear Calc 92 93 Estimated GFR > 60 > 60 Glucose 172 H 132 H Calcium 8.8 9.4 Magnesium 2.1 Total Bilirubin 0.9 0.7 AST 25 30 ALT 19 23 Alkaline Phosphatase 58 71 Total Protein 7.0 8.0 Albumin 3.7 4.6 TSH 3.430 Beta HCG, Quant Urine Color Yellow Urine Appearance Clear Urine pH 6.0 Ur Specific [place] 1.024 Urine Protein Negative Urine Glucose (UA) 3+ H Urine Ketones Trace H Ur Blood (Man) Negative Urine Nitrate Negative Urine Bilirubin Negative Urine Urobilinogen 0.2 Leukocyte Esterase Rfl Negative Salicylates < 1.0 L Urine Opiates Screen Neg
--- NOTE | 2023-10-22 18:38 | ECG_ITS ---
Measurements Intervals [place] Rate: 96 P: 58 [place]: 136 QRS: 76 QRSD: 108 T: 26 QT: 371 QTc: 469 Interpretive Statements SINUS RHYTHM NORMAL ECG COMPARED TO ECG 10/22/2023 00:17:25 SINUS RHYTHM NOW PRESENT Electronically Signed On 10-22-2023 8:05:22 STATISTICAL SECRETARY by Vickey Fletcher M.D.
== END 2023-10-22 15:00 | disposition home or self-care (01) ==
LOC: ANHED 20:22 → ANH2MED 23:15
PROVIDERS: Emergency Medicine; Nurse Practitioner Family; Admitting Provider Internal Medicine; Emergency Provider Student in an Organized Health Care Education/Training Program; PCP Physician Assistant Medical; Visit Provider Internal Medicine
DX: T43.291A Poisoning by other antidepressants, accidental (unintentional), initial encounter (principal); E13.9 Other specified diabetes mellitus without complications; F41.1 Generalized anxiety disorder; F32.A Depression, unspecified; Z79.84 Long term (current) use of oral hypoglycemic drugs; Z20.822 Contact with and (suspected) exposure to COVID-19
CPT/HCPCS: 36415; 80053; 80307; 81003; 83735; 84443; 84702; 85025; 85027; 87635; 93005; 96360; 96361; 99285; A9270; G0378; J7030

== ENCOUNTER 2025-02-23 20:04 | Emergency (ER) | payer OTHER, SELFPAY ==
--- OUTSIDE RECORDS SUMMARY | 2025-02-23 20:06 | XMS_ITS | Clinical Summary ---
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 Gender Identity Not on file Sexual Orientation Not on file Plan of Treatment Health Maintenance Due Date Last Done Comments Hepatitis C Virus (HCV) Screening 1973 Hepatitis B Immunization (1 of 3 - 19+ 3-dose series) 1992 Pap Smear 1994 Cervical Cancer Screening (CCS) 2003 HPV/Cotest 2003 Colonoscopy 2018 Colorectal Cancer Screening 2018 Cologuard 2023 Immunochemical Fecal Occult Blood 2023 Mammogram 2023 Pneumococcal Immunization (5 0+ years) (1 of 1 - PCV) 2023 Zoster Immunization (1 of 2) 2023 Influenza Immunization (#1) 2024 SARS-COV-2 Immunization ( season) 2024 Respiratory Syncytial Virus (RSV) Immunization (Adult) (1 - 1-dose 75+ series) 2048 DTaP/Tdap/Td Immunization Discontinued 04/12/2013 TdaP Immunization Completed 04/12/2013 Meningococcal Immunization (ACWY) Aged Out No longer eligible based on patient's age to complete this topic Pneumococcal Immunization Combined Aged Out No longer eligible based on patient's age to complete this topic Rotavirus Immunization Aged Out No lo nger eligible based on patient's age to complete this topic
--- OUTSIDE RECORDS SUMMARY | 2025-02-23 20:06 | XMS_ITS | Data Portability ---
Author Organization [facility], Main Office Address [address] [place] [address] Assessment No assessment recorded. Plan of Treatment Reminders Order Date Submit Date Provider Last Modified By Organization Details Last Modified Time Details Appointments None recorded. Lab drug screen, urine 2022 023 [email or web address] [facility], [address], [place], [address], 14:44:28 Referral None recorded. Procedures None recorded. Surgeries None recorded. Imaging None recorded. Medication Orders alprazolam 0.25 mg tablet 2022 [address] [facility][id number], [address] [place], [address], 14:25:53 bupropion HCl XL 150 mg 24 hr tablet, extended release 2022 023 [email or web address] [facility] #[id number], [address] [place], [address], 3 14:58:34 Patient TargetsNo targets recorded. Patient InstructionsNo instructions recorded. Reason for Referral None Reported. Results Created Date Observation Date Name Description Value Unit Range Abnormal Flag Note LastModifiedBy Organization Detail LastModifiedTime 03/26/20 22 03/26/2022 XR, chest , 2 view No observ ation record ed. [id number] [facility] [address], [place], [address], 11/10/2022 17:29:41 Result Notes None recorded. Problems Name Problem SNOMED Code Status Onset Date Resolution Date Notes Provider Name and Address Organization Details Recorded Time Vitamin D deficiency 26835133 Active 2017 Not Available [facility] 3 17:28:51 Depressive disorder 71485167 Active Not Available [facility] 3 17:28:51 Elevated blood-pressur e reading without diagnosis of hypertension 737067943 Active 2021 Not Available [facility] 3 17:28:51 Neuropathy 244975437 Active Not Available [facility] 3 17:28:51 Anxiety 99669029 Active Not Available [facility] 3 17:28:51 Hyperlipidemi a 74031018 Active Not Available [facility] 3 17:28:51 Allergic rhinitis 04715312 Active 2021 Not Available [facility] 3 17:28:51 Diabetes mellitus 85297560 Active Not Available [facility] 3 17:28:51 Mixed anxiety and depressive disorder 364840242 Active 2022 MARIA ANTONIA Alonso [address] [place] [address], [facility] [address], [place], [address] , [facility] 3 17:05:16 Problem Notes None recorded. Procedures Surgical History Date Name Laterality Status Provider Name and Address Organization Details Recorded Time cholecystectomy completed Not Available [facility] 11/10/2022 17:28:32 Imaging Results None recorded. Procedure Notes None recorded. Medical Equipment None Reported. Allergies Allergen ID Allergen Name Allergen Category Reaction Reaction Severity Criticality Documentation Date Start Date Code Code System Note Provider Name and Address Organization Details Recorded Time 14374 Product containin g penicilli n (product) medicatio n anaphylax is Not available Not available 11/10/2022 37355 8001 SNOMED Not Available [facility] 3 17:29:39 Medications Name Sig Start Date Stop Date Status Note LastModified by Organization Details LastModified Time fluoxetin e 40 mg capsule Take 1 capsule twice a day by oral route. 03/31 completed Not Available Not Available Not Available metformin 500 mg tablet TAKE 2 TABLET BY MOUTH TWICE DAILY 06/21 completed Not Available Not Available Not Available doxycycli ne hyclate 100 mg capsule TAKE 1 CAPSULE BY MOUTH TWICE A DAY 11/05 completed Not Available Not Available Not Available atorvasta tin 10 mg tablet Take 1 tablet every day by oral route. active Not Available Not Available No t Available azithromy avtar 250 mg tablet TAKE 2 TABLETS BY MOUTH TODAY, THEN TAKE 1 TABLET DAILY FOR 4 DAYS 03/24 completed Not Available Not Available Not Available benzonata te 200 mg capsule TAKE 1 CAPSULE BY MOUTH THREE TIMES A DAY NEEDED FOR COUGH 11/03 completed Not Available Not Available Not Available Zyrtec 10 mg tablet Take 1 tablet every day by oral route for 90 days. active Not Available Not Available No t Available sulfameth oxazole 800 mg-trimet hoprim 160 mg tablet Take 1 tablet every 12 hours by oral route. 2014 active Not Available Not Available Not Avai lable liothyron ine 5 mcg tablet Take 1 tablet every day by oral route at bedtime for 30 days. 07/01 completed Not Available Not Available Not Available alprazola m 0.25 mg tablet TAKE 1 TABLET TWICE A DAY BY ORAL ROUTE NEEDED. active Not Available Not Available No t Available Synthroid 25 mcg tablet Take 1 tablet every day by oral route in the morning for 30 days. 07/01 completed Not Available Not Available Not Available OneTouch Ultra Test strips Test once daily active Not Available Not Available No t Available meclizine 25 mg tablet 03/31 completed Not Available Not Available Not Available hydroxyzi ne HCl 25 mg tablet Take 1 tablet 3 times a day by oral route as needed. active Not Available Not Available No t Available ergocalci ferol (vitamin D2) 1,250 mcg (50,000 unit) capsule Take 1 capsule every week by oral route. active Not Available Not Available No t Available methylpre dnisolone 4 mg tablets in a dose pack TAKE 6 TABLETS ON DAY 1 DIRECTED ON PACKAGE AND DECREASE BY 1 TAB EACH DAY FOR A TOTAL OF 6 DAYS 11/03 completed Not Available Not Available Not Available metformin ER 500 mg tablet,ex tended release 24 hr TAKE 2 TABLETS BY MOUTH TWICE DAILY WITH MEALS 11/08 completed Not Available Not Available Not Available sertralin e 50 mg tablet TAKE 1 TABLET BY MOUTH EVERY DAY active Not Available Not Available No t Available doxycycli ne hyclate 100 mg tablet TAKE 1 TABLET BY MOUTH TWICE A DAY 03/24 completed Not Available Not Available Not Available tobramyci n 0.3 %-dexamet hasone 0.1 % eye drops,fab pension INSTILL 1 DROP INTO RIGHT EYE 4 TIMES A DAY 03/16 completed Not Available Not Available Not Available escitalop jessica 10 mg tablet TAKE 1 TABLET BY MOUTH DAILY 03/31 completed Not Available Not Available Not Available escitalop jessica 20 mg tablet TAKE 1 TABLET BY MOUTH EVERY DAY active Not Available Not Available No t Available clonazepa m 0.5 mg disintegr ating tablet PLACE 1 TABLET BY TRANSLIN GUAL ROUTE NEEDED 03/31 completed Not Available Not Available Not Available rosuvasta tin 5 mg tablet Take 1 tablet every day by oral route. 12/06 completed Not Available Not Available Not Available rosuvasta tin 40 mg tablet TAKE 1 TABLET BY MOUTH TWICE WEEKLY active Not Available Not Available No t Available bupropion HCl XL 150 mg 24 hr tablet, extended release TAKE 1 TABLET BY MOUTH EVERY DAY 2023 active Not Available Not Available Not Avai lable metformin ER 500 mg tablet,ex tended release 24hr (osmotic) TAKE 2 TABLETS BY MOUTH TWICE DAILY WITH MEALS 07/01 completed Not Available Not Available Not Available nitrofura ntoin monohydra te/macroc rystals 100 mg capsule TAKE 1 CAPSULE BY MOUTH TWICE A DAY 11/05 completed Not Available Not Available Not Available OneTouch UltraSoft Lancets active Not Available Not Available Not Available Lyrica 50 mg capsule Take 1 capsule 3 times a day by oral route for 90 days. 05/02 completed Not Available Not Available Not Available BD Ultra-Fin e Short Pen Needle 31 gauge x /16 USE DIRECTED active Not Available Not Available No t Available metformin ER 500 mg 24 hr tablet,ex tended release (gastric retention ) 07/01 completed need rx for 90 day supply per insuranc e Not Available Not Available Not Available Januvia 100 mg tablet Take 1 tablet every day by oral route. 01/23 completed Not Available Not Available Not Available OneTouch Delica Lancets 30 gauge active Not Available Not Available Not Available Metanx (algal oil) 3 mg-35 mg-2 mg-90.314 mg capsule TK 1 C PO BID 03/31 completed Not Available Not Available Not Available Victoza 3-Dony 0.6 mg/0.1 mL (18 mg/3 mL) subcutane ous pen injector INJECT 1.8MG SUBCUTAN EOUSLY DAILY 01/23 completed Not Available Not Available Not Available Farxiga 5 mg tablet TK 1 T PO QD 05/02 completed Not Available Not Available Not Available Jardiance 25 mg tablet Take 1 tablet every day by oral route in the morning for 30 days. 07/01 completed Not Available Not Available Not Available NovoFine Plus 32 gauge x 1/6 needle active Not Available Not Available Not Available Ozempic 1 mg/dose (2 mg/1.5 mL) subcutane ous pen injector INJECT 1MG SUBCUTAN EOUSLY ONCE A WEEK BEFORE MEALS 07/13 completed Not Available Not Available Not Available Ozempic 0.25 mg or 0.5 mg (2 mg/1.5 mL) subcutane ous pen injector Inject 0.5 mg every week by subcutan eous route with meals for 30 days. 11/08 completed Not Available Not Available Not Available OneTouch Ultra Blue Test Strip active Not Available Not Available Not Available Ubrelvy 100 mg tablet TAKE 1 TABLET BY MOUTH AT ONSET OF HEADACHE active Not Available Not Available No t Available Ozempic 1 mg/dose (4 mg/3 mL) subcutane ous pen injector INJECT 1MG SUBCUTAN EOUSLY ONCE A WEEK BEFORE MEALS active Not Available Not Available No t Available Vitals Date Recorded Body mass index (BMI) Body height Oxygen saturation Oxygen saturation in Arterial blood by Pulse oximetry Heart rate Body temperature Body weight Systolic blood pressure Diastolic blood pressure Provider Name and Address Organization Details Last Updated DateTime 3 31.3 kg/m2 167.64 cm 99 % 99 % 97 /min 96.1 [degF] 30977.9 2 g 114 mm[Hg] 72 mm[Hg] Not Available [facility] 3 17:28:35 Date Recorded Body height Body mass index (BMI) Body weight Body temperature Heart rate Oxygen saturation Oxygen saturation in Arterial blood by Pulse oximetry Systolic blood pressure Diastolic blood pressure Provider Name and Address Organization Details Last Updated DateTime 3 167.64 cm 30.8 kg/m2 35329.1 4 g 97.8 [degF] 72 /min 98 % 98 % 128 mm[Hg] 76 mm[Hg] Ashley man [facility] [place] [facility] 3 14:07:51 Date Recorded Oxygen saturation Oxygen saturation in Arterial blood by Pulse oximetry Heart rate Body temperature Body weight Systolic blood pressure Diastolic blood pressure Provider Name and Address Organization Details Last Updated DateTime 2 96 % 96 % 68 /min 96.9 [degF] 88238.5 5 g 150 mm[Hg] 86 mm[Hg] Not Available [facility] 3 17:28:35 Social History Question Answer Notes LastModified by [employer] Details LastModified Time Tobacco Smoking Status Never Smoker [facility] [place] [facility] 03/16/2023 13:53:30 If You Are , What Was Your Level Of Alcohol Consumption Prior To ? None [email or web address] Information not available 03/16/2023 What Is Your Level Of Caffeine Consumption? Moderate [id number] Information not available 11/10/2022 How Much Tobacco Do You Chew? None [id number] Information not available 11/10/2022 In The 14 Days Before Symptom Onset, Have You Had Close Contact With A Laboratory-confirm ed COVID-19 While That Case Was Ill? No [email or web address] Information n ot available 03/16/2023 In The 14 Days Before Symptom Onset, Have You Had Close Contact With A Person Who Is Under Investigation For COVID-19 While That Person Was Ill? No Information not available 03/16/2023 Which Illicit Or Recreational Drugs Have You Used? None [email or web address] Information not available 03/16/2023 Sex: Unknown Functional Status Question Answer Note LastModified by Organizat ion Details LastModified Time Do you use any illicit or recreational drugs? No [email or web address] Information not available 03/16/2023 What is your level of alcohol consumption? Occasional [id number] Information not available 11/10/2022 Do you or have you ever used smokeless tobacco? Never used smokeless tobacco [id number] Information not available 11/10/2022 What is your occupation? [employer] [email or web address] Information not available 03/16/2023 Do you or have you ever used e-cigarettes or vape? Never used electronic cigarettes [email or web address] Information not available 03/16/2023 Mental Status None recorded. Family History Relationship Description Onset Age of this Age Resolved Age Notes LastModified by Organization Details LastModified Time Father Heart disease [id number] Not available 11/10/2022 17:28:32 Father Myocardial infarction [id number] Not available 11/10/2022 17:28:32 Paternal Grandfather Heart disease [id number] Not available 11/10/2022 17:28:32 Paternal Grandfather Myocardial infarction [id number] Not available 11/10/2022 17:28:32 Medical History Condition Response DIABETES, TYPE Y DEPRESSION (INCLUDING POST ) Y HIGH CHOLESTEROL / HYPERLIPIDEMIA Y Gynecological History Statement/Question Response Sexually Active? Y Weight gain N Dislike of Light during Menstrual Headac he N Menses Monthly N STIs/STDs N Current Control Method None Breast Problems no Discharge no Obstetrics History GPAL:G 0 P 0 0 0 0 Immunizations Vaccine Type Date Status Note Provider Nam e and Address Organization Details Recorded Time Tdap 04/12/2013 completed Not Available [facility] 11/10/2022 17:29:37 Past Encounters Encounter ID Performer Location Encounter Start Date Encounter Closed Date Diagnosis/Indication Diagnosis SNOMED-CT Code Diagnosis ICD10 Code Diagnosis Note [id number] Miroslava Vasquez MD [facility]_ DEFAULT_1 _1 , 03/05/2021 00:00:00 03/05/2021 12:08:50 [id number] Jelani Dangelo MD [facility] [place] [address] [facility] [address] , [place] [address] 03/24/2022 00:00:00 03/25/2022 08:19:[id number] [facility] Primary [facility] [place] [address] [facility] [address] [place] [address] 11/05/2022 00:00:00 11/05/2022 10:58:10 [id number] Yolanda Villatoro MD [facility] [place] [address] [facility] [address] [place] [address] 03/16/2023 13:51:42 03/16/2023 14:44:36 Mixed anxiety and depressive disorder 598876092 F41.8 Did not have good results with trying to switch to sertraline .Will continue escitalopr am 20mg daily, add bupropion 150mg daily.Will take xanax on an as needed basis. Will update UDS today.F/u in 3-4 weeks. 11/05/22: She has been on escitalopr am 20mg daily for last 5-6 years. She states she started a new job about 8 months ago and she has felt more generalize d anxiety and stress. She has also tried prozac in the past, switched due to being on it for extended period of time. Will try switching to zoloft. Continue alprazolam PRN. Long-term drug therapy [id number] Z79.899 Health Concerns Section Related Observation LastModified by Organization Detai ls LastModified Time None Recorded Concern Status LastModified by Organization Details LastModified Time None Recorded Advance Directives Directive None Recorded Payers Insurance Date Sequence Insurance Name Policy Number Policy Peters Covered Member ID Peters Member ID Guarantor Name 06/06/2023 1 [id number] Paty Goldsmith [id number] Paty Goldsmith Notes Date Note Type Note Provider Name and Address Organization Details Recorded Time 03/16/2023 text/html Pt. here to follow-up on anxiety/depressio n. She states anxiety seems to be better but depression does not seem as well controlled. MARIA ANTONIA Alonso [address] [place] [address], [facility] [address], [place], [address], [facility] 03/16/2023 15:00:33 OBGyn Episode No OBEpisode recorded.
--- OUTSIDE RECORDS SUMMARY | 2025-02-23 20:06 | XMS_ITS ---
Author Organization [facility] Address [address] [place] [address] Care Team Providers Care Crab Fisherman Name Role Phone Miroslava Vasquez Primary Care Provider [phone] REASON FOR VISIT 3 Month Follow-up Medications Medication SIG (Take, Route, Frequency, Duration) Notes Start Date End Date Status Pravastatin Sodium 10 MG 1 tab(s) orally once a day for 30 day(s) 02/21/2024 Unknown Wellbutrin SR 100 MG 1 tab(s) orally 2 times a day for 30 day(s) 30 MG 02/21/2024 Unknown metFORMIN HCl ER 500 MG 1 tab(s) orally once a day with dinner for 90 days 03/27/2024 Unknown Ozempic (1 MG/DOSE) 4 MG/3ML inject 1 mg subcutaneously once a week for 90 days 07/05/2024 Unknown Losartan Potassium 25 MG 1 tab(s) orally once a day for 90 days 07/05/2024 Unknown METFORMIN (EQV-GLUMETZA) 500 MG 1 TAB(S) ORALLY ONCE A DAY for 90 DAYS *Please review for potential replacement for e-prescription and drug interaction check* 02/21/2024 Not-Taking Ozempic (0.25 or 0.5 MG/DOSE) 2 MG/3ML inject 0.5 mg SQ subcutaneously once a week for 90 days 02/21/2024 Not-Taking Ozempic (0.25 or 0.5 MG/DOSE) 2 MG/3ML inject 0.5 mg subcutaneously once a week for 90 days 06/15/2024 Not-Taking dexAMETHasone 1 MG 1 tab(s) orally at 10 pm night before 8 am cortisol for 1 days 07/05/2024 Not-Taking Lexapro 20 MG 1 tab(s) orally once a day for 30 day(s) 02/21/2024 Unknown Encounters Encounter Location Date Provider Diagnosis [facility] - Miroslava Vasquez [address] [place] [address] 10/04/2024 Miroslava Vasquez Plan Of Treatment No Information Progress Notes * Paty GOLDSMITHDOB:1975 ( 49 yo F)Acc No.[id number]:10/04/2024 Progress Notes Patient: Paty MARIANO Provider: Fortunato Vasquez MD :1975 A ge:49 Y S ex:Female Date:10/04/2024 Address:[address] [place] [address] Subjective: * Chief Complaints: * 1 . 3 Month Follow-up. * HPI: D iabetes: 49 yo female comes in for follow up in management of type 2 DM (A1C?/due), dyslipidemia and weight gain/obesity. At last visit in Jun we continued ozempic 1 mg weekly and metformin. We sent for DST with cortisol of 1 ug/dl_ repeat and need labwork. * Medical History: * Medications: N ot-Taking/PRN METFORMIN (EQV-GLUMETZA) 500 MG TABLET, EXTENDED RELEASE 1 TAB(S) ORALLY ONCE A DAY , Notes to Pharmacist: *Please review for potential replacement for e-prescription and drug interaction check*, Not-Taking/PRN Ozempic (0.25 or 0.5 MG/DOSE)(Semaglutide(0.25 or 0.5MG/DOS)) 2 MG/3ML Solution Pen-injector inject 0.5 mg SQ subcutaneously once a week , Not-Taking/PRN Ozempic (0.25 or 0.5 MG/DOSE)(Semaglutide(0.25 or 0.5MG/DOS)) 2 MG/3ML Solution Pen-injector inject 0.5 mg subcutaneously once a week , Not-Taking/PRN dexAMETHasone 1 MG Tablet 1 tab(s) orally at 10 pm night before 8 am cortisol , Unknown Lexapro(Escitalopram Oxalate) 20 MG Tablet 1 tab(s) orally once a day , Unknown Pravastatin Sodium 10 MG Tablet 1 tab(s) orally once a day , Unknown Wellbutrin SR(buPROPion HCl ER (SR)) 100 MG Tablet Extended Release 12 Hour 1 tab(s) orally 2 times a day , Notes to Pharmacist: 30 MG, Unknown metFORMIN HCl ER 500 MG Tablet Extended Release 24 Hour 1 tab(s) orally once a day with dinner , Unknown Ozempic (1 MG/DOSE)(Semaglutide (1 MG/DOSE)) 4 MG/3ML Solution Pen-injector inject 1 mg subcutaneously once a week , Unknown Losartan Potassium 25 MG Tablet 1 tab(s) orally once a day Objective: * Vitals: * P ast Orders: L ab:DEXAMETHASONE (Order Date - 07/23/2024) (Collection Date & Time - 07/23/2024 07:41 AM) Value Reference Range DEXAMETHASONE 530 - ng/dL L ab:CORTISOL, TOTAL (Order Date - 07/23/2024) (Collection Date & Time - 07/23/2024 07:41 AM) Value Reference Range CORTISOL, TOTAL 1.1 L - mcg/dL Assessment: Plan: * Treatment: * Billing Information: * Visit Code: * Procedure Codes: * Electronic signature of Micheal Vasquez MD on 02/23/2025 at 08:06 PM CDT Sign off status: Pending * Provider: Fortunato Vasquez MD Date: 0 10/04/2024 Generated for Mitchell mahmood/Emilia/Lorraine on: 0 02/23/2025 08:06 PM CDT History and Physical Notes * HPI (History of Present Illness) Category Sub-Category Detail Notes Category Not es Diabetes 49 yo female comes in for follow up in management of type 2 DM (A1C?/due), dyslipidemia and weight gain/obesity. At last visit in Jun we continued ozempic 1 mg weekly and metformin. We sent for DST with cortisol of 1 ug/dl_ repeat and need labwork
--- OUTSIDE RECORDS SUMMARY | 2025-02-23 20:06 | XMS_ITS | Patient Health Record ---
Author Organization [facility] Address [address] [place] [address] Care Team Providers Care Cloth Examiner Name Role Phone ZethomasMarciey Unavailable [phone] OnielIrais urrutia Unavailable [phone] Allergies Allergen (clinical drug ingredient) Drug/Non Drug Allergy documented on EMR Reaction Allergy Type Onset Date Status aripiprazole Aripiprazole akathisia Drug Allergy 11/11/2023 Active Substance with penicillin structure and antibacterial mechanism of action (substance) Penicillins anaphylaxis Drug Allergy Active Reason For Referral No Information Medications Medication SIG (Take, Route, Frequency, Duration) Notes Start Date End Date Status Ubrelvy 100 MG 1 tablet as needed, may take second dose at least 2 hours after first dose up to 2 tablets per day as needed Oral daily As needed *Reorder from Stratus5 for eRx and Interaction Alerts* Active Rosuvastatin Calcium 40 MG Oral Active Ozempic (1 MG/DOSE) 4 MG/3ML Subcutaneous *Pick strength-form from Stratus5 for eRX* Active buPROPion HCl ER (XL) 150 MG 1 tab each morning Oral Once a day Active Escitalopram Oxalate 20 MG 1 tablet Oral Once a day for 90 days Active ALPRAZolam 0.25 MG 1 tablet Oral once a day As needed Active Social History Tobacco Use: Social History Observation Description Date Details (start date - stop date) Never Smoker NA - NA Sex Assigned At : Social History Observation Description Sex Assigned At Female Tobacco Control (Standard) Question Answer Notes Tobacco use: Nonsmoker AUDIT-C (Standard) Question Answer Notes Did you have a drink contain ing alcohol in the past year? Yes How often did you have six o r more drinks on one occasion in the past year? Never (0 point) How many drinks did you have on a typical day when you were drinking in the past year? 1 or 2 drinks (0 point) How often did you have a dri nk containing alcohol in the past year? Monthly or less (1 point) Problems Problem Type SNOMED Code ICD Code Onset Dates Problem Status W/U Status Risk Notes Problem [id number] Generalized anxiety disorder (F41.1) Active confirmed Problem Screening for cardiovascular system disease (410040608) Encounter for screening for cardiovascular disorders (Z13.6) Active confirmed Problem 95132685 Social phobia (F40.10) Active confirmed Problem Persistent depressive disorder (8606705889) Persistent depressive disorder (F34.1) Active confirmed Problem [id number] Negative depression screening (Z13.31) Active confirmed Vital Signs Heart Rate 85 /min 01/14/2025 Blood pressure diastolic 70 mm Hg 01/14/2025 Weight-kg 88 kg 01/14/2025 Blood pressure systolic 123 mm Hg 01/14/2025 Weight 194 lbs 01/14/2025 Encounters Encounter Location Date Provider Diagnosis [facility] [address] [address] 07/20/2024 Thena Oniel Persistent depressiv e disorder F34.1 ; Generalized anxiety disorder F41.1 and Social phobia F40.10 [facility] [address] [address] 01/14/2025 Dami Clubb Generalized anxiety disorder F41.1 ; Persistent depressive disorder F34.1 ; Social phobia F40.10 ; Negative depression screening Z13.31 and Encounter for screening for cardiovascular disorders Z13.6 Assessments Encounter Date Diagnosis (ICD Code) Assessment Notes Treatment Notes Treatment Clinical Notes Section Notes 01/14/2025 Generalized anxiety disorder (ICD-10 - F41.1) 01/14/2025 Persistent depressive disorder (ICD-10 - F34.1) 07/20/2024 Persistent depressive disorder (ICD-10 - F34.1) 07/20/2024 Generalized anxiety disorder (ICD-10 - F41.1) 07/20/2024 Social phobia (ICD-10 - F40.10) 01/14/2025 Social phobia (ICD-10 - F40.10) 01/14/2025 Negative depression screening (ICD-10 - Z13.31) 01/14/2025 Encounter for screening for cardiovascular disorders (ICD-10 - Z13.6) 01/14/2025 Nona Doherty is a female with a bachelor's degree in psychology, working as a crisis counselor, presenting with a history of chronic anxiety, social phobia, and mild depressive symptoms. Chronic Anxiety and Mild Depressive Symptoms Assessment: Patient has a longstanding history of chronic anxiety and mild depressive symptoms. She is currently taking escitalopram 20 mg daily, alprazolam as needed, and bupropion 150 mg daily. Patient reports no recent changes in symptoms or medication efficacy. Family history is significant for anxiety in her sister and daughter, and her father had a history of anxiety, alcoholism, and heart disease. No history of tish, hypomania, obsessions, compulsions, psychosis, trauma, or abuse reported. Patient denies current suicidal ideation or past suicide attempts. She is not currently engaged in therapy. Plan: - Continue current medication regimen: - escitalopram 20 mg daily (refill sent) - Alprazolam as needed- refill not needed at this time. - Bupropion 150 mg daily- refill not needed at this time. - Schedule follow-up appointment in 3 months The note is transcribed using speech recognition software. It is a reflection of a visit with the patient. It might have some inaccuracy, including medication names and transcribing errors, though efforts have been made to correct them. Plan Of Treatment Next Appt Details Provider Name:Kayla Karuna Gomezdanny mikechacha, 04/15/2025 03:00:00 PM, [address] [facility] [address] [facility] [address], [address], Insurance Providers Payer Name Payer Address Payer Phone Subscriber Number Group Number Insured Name Patient Relationship to Insured Coverage Start Date Coverage End Date Cigna Ppo [address] [place] [phone] [id number] KERR Self - patient is the insured Medical (General) History Medical History History ICD Code Past Psychiatric History: Anxiety Disord er abdominal aortic aneurysm: No atrial fibrillation: No chronic fatigue syndrome: No essential tremor: No hyperlipidemia: No hypertension: No Parkinson's disease: No restless leg syndrome: No stroke: No subdural hematoma: No type 1 diabetes mellitus: No type 2 diabetes mellitus: Yes vitamin B12 deficiency: No vitamin D deficiency: No Surgical History Surgery Date(Month/Year) galbladder removal
--- OUTSIDE RECORDS SUMMARY | 2025-02-23 20:06 | XMS_ITS | Clinical Summary ---
Author Organization [facility] Address [address] [place] [address] Care Team Providers Care Occupational Therapy Manager Name Role Phone Unavailable Primary Care Provider Unavailabl e Source Comments [facility],non-owned Affiliates and Associated Physician Practices is amultiple site organization consisting of ambulatory clinics and hospital sitesin [place], [place], [place] and [place]. This disclosure is being madepursuant to the Care Everywhere program and may not contain all information available regarding this patient. Last updated 18.[facility] [employer] Social History Tobacco Use Types Packs/Day Years Used Date Smoking Tobacco: Never Assessed Comments Unknown Sex and Gender Information Value Date Recorded Sex Assigned at Not on file Legal Sex Female 10:38 AM CDT Gender Identity Not on file Sexual Orientation Not on file Plan of Treatment Health Maintenance Due Date Last Done Comments COLOGUARD (AGES 45-75) - COL ON CA SCREENING 1973 COLON MONITORING 1973 COLONOSCOPY - COLON CA SCREENING 1973 CT COLONOGRAPHY - COLON CA SCREENING 1973 Colorectal Cancer Screening 1973 FIT - COLON CA SCREENING 1973 FLEX SIG - COLON CA SCREENING 1973 LIPID TESTING 1973 MAMMOGRAM 1973 PAP SMEAR 1973 HIV SCREENING 1988 HEPATITIS C SCREENING 08/23/1991 DTAP/TDAP/TD VACCINES (1 - Tdap) 1992 HEPATITIS B VACCINE (1 of 3 - 19+ 3-dose series) 1992 PNEUMOCOCCAL VACCINE 50+ (1 of 1 - PCV) 2023 ZOSTER VACCINE (1 of 2) 2023 COVID-19 VACCINE (2023-2 5 season) 2024 DEPRESSION SCREENING 09/12/2024 INFLUENZA VACCINE (Season Ended) 2025 HIB VACCINE Aged Out No longer eligi ble based on patient's age to complete this topic HPV VACCINE Aged Out No longer eligi ble based on patient's age to complete this topic MENINGOCOCCAL (Group B) VACC INE SHARED DECISION-MAKING Aged Out No longer eligibl e based on patient's age to complete this topic MENINGOCOCCAL GROUPS A/C/Y/W VACCINE Aged Out No longer eligible b ased on patient's age to complete this topic Insurance [facility] [place] Address: [facility] [id number] [place] [address]
--- OUTSIDE RECORDS SUMMARY | 2025-02-23 20:06 | XMS_ITS | Patient Health Record ---
Author Organization [facility] Address [address] [address] Care Team Providers Care Director Corporate Sales Name Role Phone Miroslava Vasquez Primary Care Provider Lisa Sifuentes Unavailable [phone] Migration, Provider Unavailable Unavailable Allergies Allergen (clinical drug ingredient) Drug/Non Drug Allergy documented on EMR Reaction Allergy Type Onset Date Status Penicillin G Benzathine SWELL UP/CANT BREATHE Drug Allergy Active Results Component Value Reference Range Notes DEXAMETHASONE Reviewed date:08/02/2024 09:22:56 PM Interpretation: Performing Lab:[facility],, [address] [place], [address] Rosibel Gracia MD,PhD,SALOMÓN Notes/Report: DEXAMETHASONE 530 Reference Ranges for Dexamethasone: Baseline: Less than 20 ng/dL 1 mg dexamethasone overnight: 180-550 ng/dL (8:00-10:00 AM) This test was developed and its analytical performance characteristics have been determined by [employer]. It has not been cleared or approved by FDA. This assay has been validated pursuant to the CLIA regulations and is used for clinical purposes. CORTISOL, TOTAL Reviewed date:07/26/2024 08:24:30 PM Interpretation: Performing Lab:[facility], [address] [place], [address] Braden Cali MD Notes/Report: COMPREHENSIVE METABOLIC PANE L Reviewed date:10/12/2024 08:17:01 AM Interpretation: Performing Lab:[facility], [address] [place], [address] Braden Cali MD Notes/Report: VITAMIN D, 25-HYDROXY, LC/MS /MS Reviewed date:10/12/2024 08:17:01 AM Interpretation: Performing Lab:[facility], [address], [place], [address] Braden Cali MD Notes/Report: T3, FREE Reviewed date:10/12/2024 08:17:01 AM Interpretation: Performing Lab:[facility], [address], [place], [address] Braden Cali MD Notes/Report: HEMOGLOBIN A1c Reviewed date:10/12/2024 08:17:01 AM Interpretation: Performing [facility], [address], [place], [address] Braden Cali Notes/Report: CBC (INCLUDES DIFF/PLT) Reviewed date:10/12/2024 08:17:01 AM Interpretation: Performing Lab:[facility], [address], [place], [address] Braden Cali MD Notes/Report: VITAMIN B12/FOLATE, SERUM PA JULIANNA Reviewed date:10/12/2024 08:17:01 AM Interpretation: Performing Lab:[facility], [address], [place], [address] Braden Cali MD Notes/Report: LIPID PANEL Reviewed date:10/12/2024 08:17:01 AM Interpretation: Performing Lab:[facility], [address], [place], [address] Braden Cali MD Notes/Report: T4, FREE Reviewed date:10/12/2024 08:17:01 AM Interpretation: Performing Lab:[facility], [address], [place], [address] Braden Cali MD Notes/Report: TSH Reviewed date:10/12/2024 08:17:01 AM Interpretation: Performing Lab:[facility], [address], [place], [address] Braden Cali MD Notes/Report: Reason For Referral No Information Medications Medication SIG (Take, Route, Frequency, Duration) Notes Start Date End Date Status dexAMETHasone 1 MG 1 tablet Orally at 1 0 pm night before 8 am cortisol for 1 days 10/16/2024 Active Wellbutrin SR 100 MG 1 tab(s) orally 2 t imes a day for 30 day(s) 30 MG 02/21/2024 Active Pravastatin Sodium 10 MG 1 tab(s) orally once a day for 30 day(s) 02/21/2024 Active Lexapro 20 MG 1 tab(s) orally once a day for 30 day(s) 02/21/2024 Active Ozempic (1 MG/DOSE) 4 MG/3ML inject 1 mg subcutaneously once a week for 90 days 07/05/2024 Active Problems Problem Type SNOMED Code ICD Code Onset Dates Problem Status W/U Status Risk Notes Problem Hyperglycemia due to type 2 diabetes mellitus (752219897659137) Type 2 diabetes mellitus with hyperglycemia (E11.65) Active confirmed Problem Hyperlipidemia (98378938) Hyperlipidemia, unspecified (E78.5) Active confirmed Problem Obesity (707581381) Obesity, unspecified (E66.9) Active confirmed Problem Autoimmune thyroiditis (15062882) Autoimmune thyroiditis (E06.3) Active confirmed Vital Signs Heart Rate 73 /min 10/16/2024 SpO2: 99% Blood pressure diastolic 83 mm Hg 10/16/2024 SpO 2: 99% Height 66 in 10/16/2024 SpO2: 99% Blood pressure systolic 134 mm Hg 10/16/2024 SpO2 : 99% Weight 193.0 lbs 10/16/2024 SpO2: 99% BMI 31.15 kg/m2 10/16/2024 SpO2: 99% Encounters Encounter Location Date Provider Diagnosis [facility] Mirosl[facility] [employer] [employer] [address] [place] [address] 03/27/2024 Miroslava Vasquez Type 2 diabetes mellitus with hyperglycemia E11.65 ; Autoimmune thyroiditis E06.3 ; Hyperlipidemia, unspecified E78.5 and Dietary counseling and surveillance Z71.3 [facility] [employer] [address] [place] [address] 07/02/2024 Lisa Sifuentes [facility] [address] [place] [address] 07/05/2024 Miroslava Vasquez Type 2 diabetes mellitus with hyperglycemia E11.65 ; Hyperlipidemia, unspecified E78.5 ; Obesity, unspecified E66.9 and Other fatigue R53.83 [facility] Miroslava [employer] [address] [place] [address] 10/16/2024 Miroslava Vasquez Type 2 diabetes mellitus with hyperglycemia E11.65 ; Autoimmune thyroiditis E06.3 ; Obesity, unspecified E66.9 ; Hyperlipidemia, unspecified E78.5 and Dietary counseling and surveillance Z71.3 [facility] [address] [place] [address] 07/28/2024 Provider Migration Type 2 diabetes mellitus with hyperglycemia E11.65 and Obesity, unspecified E66.9 [facility] Miroslava [employer] [address] [place] [address] 05/15/2024 Miroslava Pedro [place] [facility] [address] [place] [address] 06/15/2024 Miroslava Vasquez Type 2 diabetes mellitus with hyperglycemia E11.65 [facility] [address] [place] [address] 06/19/2024 Miroslava Vasquez [employer] [employer] [address] [place] [address] 10/02/2024 Miroslava Vasquez [place] [facility] Mi[facility]lava [employer] [address] [place] [address] 10/08/2024 Miroslava Vasquez Type 2 diabetes mellitus with hyperglycemia E11.65 Assessments Encounter Date Diagnosis (ICD Code) Assessment Notes Treatment Notes Treatment Clinical Notes Section Notes 03/27/2024 Type 2 diabetes mellitus with hyperglycemia (ICD-10 - E11.65) Continue ozempic 0.5 mg weekly as patient tolerating well-will resend metformin as there is no reason why insurance would not or could not cover this medication. She is aware to take with largest meal of day. Discussed carb counting and how to read food labels. Recommended patient to utilize the [employer] from the ADA website to help with food preparation as this presents ideal carb content per meal and will make carb counting easier for patient. Recommended she incorporate natural insulin sensitizers such as pears, apples, cinnamon, elier and sweet potatoes to help mobilize her endogenous insulin. Recommended up to 150 minutes of moderate level activity /exercise per week. 03/27/2024 Autoimmune thyroiditis (ICD-10 - E06.3) recommended thyroid support/ purely holistic along with AIP diet with focus to restrict gluten in diet. 07/05/2024 Type 2 diabetes mellitus with hyperglycemia (ICD-10 - E11.65) 07/05/2024 Hyperlipidemia, unspecified (ICD-10 - E78.5) 10/16/2024 Type 2 diabetes mellitus with hyperglycemia (ICD-10 - E11.65) 07/28/2024 Type 2 diabetes mellitus with hyperglycemia (ICD-10 - E11.65) 06/15/2024 Type 2 diabetes mellitus with hyperglycemia (ICD-10 - E11.65) 10/08/2024 Type 2 diabetes mellitus with hyperglycemia (ICD-10 - E11.65) 03/27/2024 Hyperlipidemia, unspecified (ICD-10 - E78.5) Repeat lipid panel- she is now taking rosuvastatin daily. 07/05/2024 Obesity, unspecified (ICD-10 - E66.9) 10/16/2024 Autoimmune thyroiditis (ICD-10 - E06.3) 07/28/2024 Obesity, unspecified (ICD-10 - E66.9) 03/27/2024 Dietary counseling and surveillance (ICD-10 - Z71.3) discussed dietary measures in regards to weight loss- importance to restrict calories to 1200 per day if sedentary vs 0041-2460 calories depending on caloric expenditure. She was provided information on juan [email or web address] sanchez as this program manages metabolic syndrome and products include insulin sensitizers along with thyroid support/supplementation to help tailor weight loss in individuals who struggle with underlying autoimmune thyroid conditions and hyperglycemia (fasting glucose of 97 mg/dL). Spent up to 20 minutes discussing alternative weight loss options. 07/05/2024 Other fatigue (ICD-10 - R53.83) 10/16/2024 Obesity, unspecified (ICD-10 - E66.9) 10/16/2024 Hyperlipidemia, unspecified (ICD-10 - E78.5) 10/16/2024 Dietary counseling and surveillance (ICD-10 - Z71.3) 03/27/2024 Other Spent 25 minute s preparing to see the patient (ex review of tests/chart), obtaining and / or reviewing separately obtained history, performing a medically appropriate examination and/or evaluation, counseling and educating the patient/family/caregiver , ordering medications, tests, or procedures, referring and communicating with other health home day care provider, documenting clinical information in the electronic or other health record, independently interpreting results and communicating results to the patient/family/caregiver and care coordinating patient plan. Patient alert and oriented x 4 and aware of discussion noted above and in agreeance to plan in management of DM, autoimmune thyroiditis, hyperlipidemia and weight management. 07/05/2024 Other Assessment and Plan: 1. Type 2 Diabetes Mellitus- Continue Ozempic but uptitrate to 1 mg once a week- Continue Metformin twice a day- Monitor blood glucose levels and report any significant changes - Send for DST as she has not lost weight on ozempic and she has insomnia and poor wound healing 2. Weight Management- Encourage patient to maintain a healthy diet and continue walking 2 miles a night- Consider increasing Ozempic dose to 1 mg if cortisol levels are normal- Evaluate the possibility of Mounjaro if insurance allows and weight loss remains stagnant 3. Suspected Hypercortisolism- Order dexamethasone suppression test to evaluate cortisol levels- If cortisol levels are high, consider additional blood work and imaging of adrenal or pituitary glands to check for nodules causing hormone over-secretion 4. Hypertension- Start Losartan 25 mg daily, with the option to increase to 50 mg if needed- Monitor blood pressure and report any significant changes or side effects- Encourage stress management techniques to help lower blood pressure 5. Insomnia and Anxiety- Address potential cortisol imbalance as a possible contributing factor- Encourage patient to practice relaxation techniques and maintain a consistent sleep schedule 6. Employment-related Stress- Encourage patient to prioritize self-care and take necessary time off work for medical appointments and personal well-being- Recommend exploring stress management techniques and resources to cope with work-related stress 7. Follow-up- Schedule a follow-up appointment to review lab results and assess the effectiveness of the treatment plan- Adjust medications and management strategies as needed based on lab results and patient's response to treatment Spent 25 minutes preparing to see the patient (ex review of tests/chart), obtaining and / or reviewing separately obtained history, performing a medically appropriate examination and/or evaluation, counseling and educating the patient/family/caregiver , ordering medications, tests, or procedures, referring and communicating with other health home day care provider, documenting clinical information in the electronic or other health record, independently interpreting results and communicating results to the patient/family/caregiver and care coordinating patient plan. Patient alert and oriented x 4 and aware of discussion noted above and in agreeance to plan in management of type 2 DM, hyperlipidemia, obesity and fatigue. 10/16/2024 Other Assessment and Plan: Type 2 Diabetes MellitusPatient's A1c is below 7%, with average blood glucose levels around 130 mg/dL, occasionally reaching 140 mg/dL. The patient has lost 6 pounds.Currently on Ozempic (semaglutide) for diabetes management. Metformin was discontinued due to gastrointestinal side effects.If A1c does not improve, consider further investigation for pre-hypercortisolism. Continue current regimen of Ozempic (semaglutide). Consider increasing Ozempic dose or switching to Mounjaro if needed. Follow up in 3-4 months to monitor A1c and blood glucose levels. HyperlipidemiaPatient is currently taking pravastatin for lipid management with no reported issues. Continue pravastatin. DepressionPatient is currently taking Lexapro and Wellbutrin for depression management with no reported issues. Continue Lexapro and Wellbutrin. Borderline HypercortisolismPatient' s cortisol level was borderline at 1.1, with no reported symptoms of sleep apnea. Further screening may be necessary. Monitor for symptoms such as insomnia, worsening anxiety, or easy bruising. Consider cortisol workup if symptoms develop. Hypertension (resolved)Patient's blood pressure has normalized since changing jobs. Losartan has been discontinued. Continue to monitor blood pressure. Follow-up:Schedule a follow-up appointment in 3-4 months to review lab results and assess the response to interventions.Encourage patient to contact the clinic if any new or worsening symptoms occur. Spent 15 minutes preventative counseling patient on dietary recommendations and changes in setting of hyperglycemia- need to restrict refined sugars and processed foods and incorporate up to 150 minutes of moderate level activity weekly. Spent 25 minutes preparing to see the patient (ex review of tests/chart), obtaining and / or reviewing separately obtained history, performing a medically appropriate examination and/or evaluation, counseling and educating the patient/family/caregiver , ordering medications, tests, or procedures, referring and communicating with other health home day care provider, documenting clinical information in the electronic or other health record, independently interpreting results and communicating results to the patient/family/caregiver and care coordinating patient plan. Patient alert and oriented x 4 and aware of discussion noted above and in agreeance to plan in management of type 2 dM/well conrolled, autoimmune thyroiditis, obesity/weight management and dyslipidemia and DST repeat. Plan Of Treatment Pending Test Test Name Order Date colonoscopy-screening 02/21/2024 3D Bilateral diagnostic mammogram with U S if indicated 02/21/2024 Insurance Providers Payer Name Payer Address Payer Phone Subscriber Number Group Number Insured Name Patient Relationship to Insured Coverage Start Date Coverage End Date C[employer]a [address] [place] [phone] [id number] Paty Goldsmith Self - patient is the insured Medical (General) History Medical History History ICD Code TYPE 2 DIABETIES Hospitalization History Reason Date(Month/Year) GALLBLADDER 2007
--- OUTSIDE RECORDS SUMMARY | 2025-02-23 20:07 | XMS_ITS ---
Author Organization [facility] Address [address] [place] [address] Care Team Providers Care Medication Specialist Name Role Phone Miroslava Vasquez Primary Care Provider REASON FOR VISIT 3 month f/u tani Encounters Encounter Location Date Provider Diagnosis [facility] - Miroslava Vasquez [address] [place] [address] 01/22/2025 Miroslava Vasquez Plan Of Treatment No Information Progress Notes * Paty GOLDSMITHDOB:1975 ( 49 yo F)Acc No.[id number]:01/22/2025 Progress Notes Patient: Paty MARIANO Provider: Fortunato Vasquez MD :1975 A ge:49 Y S ex:Female Date:01/22/2025 Address:[address] [place], [place] [id number] Subjective: * Chief Complaints: * 1 . 3 month f/u tani. * Medical History: Objective: * Vitals: Assessment: Plan: * Treatment: * Billing Information: * Visit Code: * Procedure Codes: * Electronic signature of Micheal Vasquez MD on 02/23/2025 at 08:07 PM CDT Sign off status: Pending * Provider: Fortunato Vasquez MD Date: 01/22/2025 Generated for Mitchell mahmood/Emilia/Kristelitting on: 02/23/2025 08:07 PM CDT
[2025-02-23 20:12] VITALS: BP 161/77; PULSE 82; RESP 16; TEMP 37.2; O2SAT 98
--- OUTSIDE RECORDS SUMMARY | 2025-02-23 20:32 | XMS_ITS | Clinical Summary ---
Author Organization [facility] Care Team Providers Care Electrical Power Engineer Name Role Phone Unavailable Primary Care Provider Unavailabl e Social History Tobacco Use Types Packs/Day Years Used Date Smoking Tobacco: Never Assessed Comments Unknown Sex and Gender Information Value Date Recorded Sex Assigned at Not on file Legal Sex Female 3:06 PM RNFA Gender Identity Not on file Sexual Orientation [...]
--- OUTSIDE RECORDS SUMMARY | 2025-02-23 20:32 | XMS_ITS | Clinical Summary ---
Author Organization [facility] Address [address] [place] [address] Care Team Providers Care Crane Man Name Role Phone Unavailable Primary Care Provider Unavailabl e Source Comments [facility],non-owned Affiliates and Associated Physician Practices is amultiple site organization consisting of ambulatory clinics and hospital sitesin [place] and [place]. This disclosure is being madepursuant to the Care Everywhere program and may not contain all information available regarding this patient. Last updated 18.[facility] [employer] Social History Tobacco Use Types Packs/Day Years [...] patient's age to complete this topic Insurance [facility], [facility] Address: [facility] [id number] [place] [id number]
--- NOTE | 2025-02-23 20:39 | ED_ITS ---
HPI - Eye Problem General Chief complaint: Eye Problems Stated complaint: eye pain, visual changes Time Seen by Provider: 02/23/25 20:09 History of Present Illness HPI Narrative: Patient with h/o DM2, myopia, p/w R eye blurry vision upon awakening, she discovered this when she put in her contact lenses and it looks as if the contact lens was dirty, she tried taking off her contact lenses and putting on her glasses but blurry vision persisted. Never noticed any pain to her eye, this has never happened to her in the past, she had an eye check up 1 month ago was told that her eyes were fine. No headache, slurred speech, focal neurologic deficits. She was able to watch a movie last night and her vision was completely normal at the time. Family history of cataracts Related Data Home Medications ?Medication ?Instructions ?Recorded ?Confirmed ?Last Taken ?Type escitalopram oxalate 20 mg tablet 20 mg PO DAILY 03/04/22 01/16/24 10/20/23 History semaglutide 0.25 mg or 0.5 mg (2 0.5 mg subcut WEEKLY 03/27/24 Unknown History mg/3 mL) subcutaneous pen injector (Ozempic) Allergies Allergy/AdvReac Type Severity Reaction Status Date / Time Penicillins Allergy Severe Anaphylactic Verified 02/23/25 20:20 Shock Review of Systems Review of Systems: All systems reviewed & are unremarkable except as noted in HPI and below PMFSH Past Medical History Medical History Acute pancreatitis Anxiety Diabetes 1.5, managed as type 2 Foot fracture, right Surgical History Surgical History Hx of cholecystectomy No significant past surgical history Family History Family History Father , from [place] in his 30's Acute myocardial infarction Mother Thyroid disorder Grandparent Cerebrovascular accident Alcoholism Social History Social History Smoking status: Never smoker Alcohol intake: never Substance use: never Substance use type: does not use Do You Feel Safe in your Home?: Yes Lack of Transportation: No Lack of Food: Never True Current Housing: I Have Housing Concerned About Future Housing: No Difficulty Paying Gas/Electric Bills: No Difficulty Paying for Meds: No Currently Unemployed: No Education: Associate Degree Difficulty w/ Childcare or Family Care: No Gender identity (if verbalized by the patient): Female Spiritual care concerns: No Agree to blood products: Yes Exam Narrative: EXAMINATION OF ORGAN SYSTEMS/BODY AREAS: Constitutional: Vital signs per nursing GENERAL:[No acute distress, non-toxic appearing.] HEAD: Normal with no signs of head trauma. EYES: EOMI, conjunctiva normal, PERRL, no fluorescein stain uptake, tech obtained VA 20/25 left, 20/100 right; IOP 10 left, 12 right ENT: Hearing grossly intact LUNGS: Nonlabored breathing. HEART: [Regular rate and rhythm] ABD: [Soft], [nontender to palpation] EXT: Normal range of motion SKIN: [No rashes or lesions.] NEURO: [Alert and oriented x 3. No gross focal sensory or strength deficits.] PSYCH: Normal affect Course Vital Signs Vital signs: Vital Signs Temperature 98.9 F 02/23/25 20:12 Pulse Rate 82 02/23/25 20:12 Respiratory Rate 16 02/23/25 20:12 Blood Pressure 161/77 H 02/23/25 20:12 Pulse Oximetry 98 02/23/25 20:12 Oxygen Delivery Room Air 02/23/25 20:12 Temperature 98.9 F 02/23/25 20:12 Pulse Rate 82 02/23/25 20:12 Respiratory Rate 16 02/23/25 20:12 Blood Pressure 161/77 H 02/23/25 20:12 Pulse Oximetry 98 02/23/25 20:12 Oxygen Delivery Room Air 02/23/25 20:12 MDM - Eye Problem MDM Narrative Medical decision making narrative: Patient presenting with painless blurry vision right eye that she 1st noticed this morning, with normal vision last night. Normal diabetic eye exam per hotel recreational facilities manager 1 mo ago. No other neurologic deficits. IOP normal. PERRL, EOMI. I did discuss w/ ophtho Dr Castellon at [facility], who recommends repeat VA and obtaining CBG. CBG 199 here; my repeated VA with right eye is actually 20/70 (20/50 - 1), and patient last HA1c was 6.7 D/w ophtho who recommends transfer to [facility], caveat it may be a long wait. D/w Dr. Mauro ER at [facility] who accepts patient for transfer. Discharge Plan Discharge Clinical Impression: Blurred vision, right eye Patient Disposition: Acute Care Hospital Condition: Serious Patient Language: [place] Prescriptions: No Action escitalopram oxalate 20 mg tablet 20 mg PO DAILY Ozempic 0.25 mg or 0.5 mg (2 mg/3 mL) pen injector 0.5 mg subcut WEEKLY Rx Instructions: for 4 weeks bupropion HCl 150 mg tablet extended release 24 hr 150 mg PO QAM Qty: 1 0RF glimepiride 1 mg tablet 1 mg PO QAM Qty: 90 0RF Rx Instructions: administer with breakfast glucose 4 gram tablet,chewable 4 g PO Q15M PRN (Reason: hypoglycemia) Qty: 360 0RF Rx Instructions: until symptoms of low blood sugar are controlled Baqsimi 3 mg/actuation spray,non-aerosol 3 mg intranasal ONCE Qty: 1 0RF Rx Instructions: as a single dose Ubrelvy 100 mg tablet 100 mg PO DAILY Qty: 10 12RF rosuvastatin 40 mg tablet 40 mg PO DAILY Qty: 90 1RF Follow-up/Referrals: Nikkie Rivas MD [Primary Care Provider] -
[2025-02-23 22:27] LABS: Glucose Point of Care 199 mg/dl (65-105)
== END 2025-02-23 21:40 | disposition short-term general hospital (02) ==
PROVIDERS: Emergency Provider Emergency Medicine; PCP Family Medicine
DX: H53.8 Other visual disturbances (principal); E13.9 Other specified diabetes mellitus without complications; F41.9 Anxiety disorder, unspecified; H52.10 Myopia, unspecified eye; Z90.49 Acquired absence of other specified parts of digestive tract; Z79.85 Long-term (current) use of injectable non-insulin antidiabetic drugs; Z79.899 Other long term (current) drug therapy; Z79.84 Long term (current) use of oral hypoglycemic drugs
CPT/HCPCS: 82948; 99283